=== PATIENT | male | born 1960 | race Caucasian/White ===

== ENCOUNTER 2023-03-01 09:45 | Day surgery (SDC) | payer OTHER, SELFPAY ==
[2023-03-01] VITALS (16 sets, daily range): BP systolic 102–139; BP diastolic 67–89; PULSE 51–62; RESP 15–20; TEMP 36.5; O2SAT 95–99; BMI 29.9
--- OUTSIDE RECORDS SUMMARY | 2023-03-01 09:49 | XMS_ITS | Continuity of Care Document ---
Author Name Unknown Organization [facility] Address [address] [place] [address] Phone Care Team Providers Care Provider Network Mgr Name Role Phone Adolfo Magana MD Unavailable Unavailable Allergies, Adverse Reactions, Alerts Substance Reaction Status Criticality No Known Allergies Active No Inform ation Medications Medication Instructions Dosage Effective Dates (start - stop) Status Comments ATENOLOL (unknown strength) Not Available - Active LISINOPRIL (unknown strength) Not Available - Active ATORVASTATIN CALCIUM (unknown strength) Not Available - Active Procedures Procedure Date Office/Outpatient Visit,Est, Mod 2022 Office/Outpatient Visit,Est, Low 2021 Postop Followup Visit Postop Followup Visit Lami, Facetectomy/Foraminotomy, Lumbar ( Stenosis) Lami, Facetectomy/Foraminotomy - Additio nal Level(s) - PA Lami, Facetectomy/Foraminotomy, Lumbar ( Stenosis) Lami, Facetectomy/Foraminotomy - Additio nal Level(s) Office/Outpatient Visit,New, Mod 2020 Advance Directives Directive Yes / No Effective Date File Name No Information Encounters Encounter Description Practice Location Reason(s) For Visit Diagnoses Date Provider Providers Copied on Encounter Office/Outpat ient Visit,Est, Mod [facility], [address], [facility], [place], [id number] , tel:[phone] [facility] Spinal stenosis, lumbar region with neurogenic claudication Apr-0 3 [place] [facility], [address], [place], [place], [id number], [place]. tel:[phone] Referring Provider: David Ackerman [address], [address]. tel:[phone] Office/Outpat ient Visit,Est, Low [facility], [address], [place], [place], [id number] , [place] tel: [phone] [facility] Spondylolisth esis, lumbar regionSpinal stenosis, lumbar region with neurogenic claudication Apr-2 2 [place], [address], [address], [place], [place], [id number], [place]. tel:[phone] Referring Provider: David Ackerman [address], [address]. tel:[phone] [facility], [address], [place], [place], [id number] , [place] tel: [phone] [facility] Encounter for other specified surgical aftercare 1 [place]. [facility], [address], [facility] [address], [place], [id number], [place]. tel:[phone] Referring Provider: Saravanan Nelson[address], [address]. tel:[phone] [facility], [address], [place], [place], [id number] , [place] tel:[phone] [facility] Encounter for other specified surgical aftercare 1 No Information Referring Provider: David Ackerman [address], [address]. tel:[phone] [facility], [address], [place], [place], [id number] , [place] tel: [phone] [facility] No Information 1 No Information Referring Provider: David Tyron, [address], [address]. tel:[phone] [facility], [address], [place], [place], [id number] , tel:[phone] [facility] No Information 1 [place], [facility] [address] [place] [address], [address], [id number], [place]. tel:[phone] Referring Provider: David Ackerman [address], [address]. tel:[phone] Office/Outpat ient Visit,New, [facility], [address], [place], [place], [id number] , [place] tel:[phone] [facility] Spinal stenosis, lumbar region with neurogenic claudicationS pondylolysis, site unspecified 1 [place]. [facility], [address] [place] [address], [address], [id number], [place]. tel:[phone] Referring Provider: David Ackerman [address], [address]. tel:[phone] Family History Family Member Type Diagnosis Age At Onset No Information Payers Payer name Insurance type Covered green party ID Kip leon(s) [employer] [id number] Social History Type Description Quantity Date Captured Comments Alcohol Use Details Unknown Caffeine Use Details Unknown Tobacco Use Status No Information Smoking Status No Information Sex Male Vital Signs Date / Time: Height Weight BMI Pulse Rate Blood Pressure Temperature Respiratory Rate Body Surface Area Head Circumference Head Circ. Percentile Wt./Foster. Percentile BMI percentile Pulse Ox Inhaled Ox 1:09 PM 72.00 in 103.419 kg (228.00 lbs) 30.9 2 kg/m eter (2) Chief Complaint And Reason For Visit No Information Reason For Referral Reason For Referral No Information Plan Of Treatment Date Type Action Status No Information History Of Present Illness Encounter Date Complaint History Of Prese nt Illness No Information Functional Status Date Functional Assessmen t No Information Instructions Date Instruction Additional Infor mation No Information Assessments Type Assessment Date No Information Patient Care Teams Name Effective Dates (start - stop) Status Members No Information
[2023-03-01] MEDS: BUPIVACAINE 0.25% 30 ML INJECTION (11:08)
[2023-03-01] MEDS: LIDOCAINE 1% MDV 20 ML INJECTION (11:08)
--- NOTE | 2023-03-01 12:00 | PM.GSPRC ---
Operative Note Date of procedure: 03/01/23 Pre-op diagnosis: Temporal arteritis Post-op diagnosis: Same Type of Procedure: Biopsy of right temporal artery Indications: Patient is a 62-year-old male with clinical symptoms concerning for possible temporal arteritis. His neurologist recommended a biopsy to rule out or confirm diagnosis. Risks and benefits of operative intervention were discussed at length with the patient. Risks included but was not limited to: Bleeding, infection, risk of damage to surrounding structures and possible need for additional procedures. All questions were addressed with patient agreeing to proceed. Procedure Description: After discussing the risks and benefits of the procedure, the patient signed informed consent.? The operative site was marked and the patient was brought to the operating room and placed on the operating table in supine position.? Care was taken to pad the patient's pressure points. The operative site was then prepped and draped in the usual sterile fashion.? A time-out was then performed. Attention was directed to the right side. The handheld Doppler was utilized to petty out the course of the temporal artery. Local anesthetic was utilized to numb up the area. A 15 blade was used to make an approximate 5 cm incision. Cautery was then used to divide the subcutaneous tissue and assure hemostasis. The artery was visualized within the temporoparietal fascia, which was entered with sharp dissection. A proximal portion of the artery was dissected out and ligated with 3 0 Vicryl and a small clip. The dissection was then carried distally for approximately 2 cm and ligated. The specimen was then carefully removed, trying to limit manipulation of the vessel itself, and passed off to the back table. Again hemostasis was assured and the incision closed with interrupted 3 0 Vicryl and running 4 Monocryl. Sterile dressings were then applied. ? The patient was then woken and transported to the recovery area in stable condition. ? The patient tolerated the procedure well. Findings: Right temporal artery Anesthesia: local Surgeon: Bee Silva MD Estimated blood loss (mL): 5 Additional Specimen Information: Right temporal artery Condition: stable Disposition: same day
[2023-03-01] MEDS: ACETAMINOPHEN 325 MG TABLET 650 MG PO (12:05)
== END 2023-03-01 12:36 | disposition home or self-care (01) ==
PROVIDERS: PCP Family Medicine; Visit Provider Surgery
PROC: (CPT 37609; principal; 2023-03-01 11:15)
DX: R51.9 Headache, unspecified (principal)
CPT/HCPCS: 37609; 88305; A9270; J0665

== ENCOUNTER 2024-04-01 12:41 | Outpatient (CLI) | payer MEDICARE, BC, SELFPAY ==
--- OUTSIDE RECORDS SUMMARY | 2024-04-01 12:45 | XMS_ITS | Clinical Summary ---
Author Organization [facility] Address [place], [place] [address] Care Team Providers Care Rn Training Name Role Phone Jimmie Barrera MD Primary Care Provider [phone] Allergies No known active allergies Medications Medication Sig Dispensed Refills Start Date End Date Status medication order composer Mouth Guard professional made from Dentist to replace CPAP. Patient does not use CPAP. SBliek 01/05/2023. 0 01/05/2023 Active albuterol HFA (PRO-AIR; VENTOLIN; PROVENTIL) 90 mcg/actuation inhalerIndications:A cute bronchospasm Inhale 2 Puffs by mouth every 4 hours if needed (cough). 1 Each 5 10/24/2023 Active lisinopriL (PRINIVIL; ZESTRIL) 10 mg tabletIndications:Hy pertension, unspecified type,Routine physical examination TAKE ONE TABLET BY MOUTH EVERY EVENING 90 Tablet 4 10/24/2023 Active atorvastatin (LIPITOR) 40 mg tabletIndications:Mi xed hyperlipidemia Take 1 Tablet (40 mg) by mouth once daily. 90 Tablet 4 10/24/2023 Active atenolol-chlorthalid one, 50-25 mg, (TENORETIC 50) 50-25 mg tabletIndications:Hy pertension, unspecified type TAKE ONE-HALF TABLET BY MOUTH DAILY 45 Tablet 4 10/24/2023 Active Active Problems Problem Noted Date Diagnosed Date COVID-19 virus detected 01/05/2023 Essential hypertension 12/03/2020 Obstructive sleep apnea 12/03/2020 GERD without esophagitis 12/03/2020 Spinal stenosis of lumbar re gion with neurogenic claudication 12/03/2020 Family history of prostate cancer 10/11/2016 Overview: Paternal uncle and many of his relatives with prostate cancer. Heriberto would prefer to continue yearly PSAs with this history as of 10/11/2016. [facility] HST Date 04/15/2015 ; AHI- 34 05/06/2015 Vitamin D deficiency 09/03/2013 Colon polyps 09/25/2008 Overview: Colonoscopy in 5 years 12/2013 Colonoscopy 09/2013 polyps repeat in 5 years Colonoscopy 10/2018 polyps, repeat in 5 years Colonoscopy 10/2023 TA, SSA, repeat in 5 years Mixed hyperlipidemia 08/05/2008 Acute bronchospasm 08/19/2007 Overview: Cold triggers. URI triggers. HYPERTENSION 08/16/2007 Encounters Date Type Department Care Team Description 03/25/2024 1:05 PM CDT Office Visit [facility] [address] [place] [address] Jimmie Barrera MD Musculoskeletal Problem (Right shoulder pain follow up ) 03/25/2024 Travel 03/21/2024 Telephone [facility] [address] [place] [address] Jimmie Barrera MD from Last 3 Months Immunizations Name Administration Dates Next Due Influenza, IIV3 (Age >=3 years) 07/23/2003 Td (Age >=7 Years) 04/15/2002 Tdap 10/07/2021,08/23/2011 Family History Medical History Relation Name Comments Cancer-prostate Father Heart Disease Father MA at 54 (smok er); he of a blood clot or MA at 88. Hypertension Father Heart Disease Maternal Grandfather MA x2 at 62 Arthritis Mother Cancer Mother Kidney Hypertension Mother Other Mother Honey combing o f lung med induced; at 71 from this Cancer-prostate Paternal Uncle Relation Name Status Comments Brother Alive Father (Age 88) Maternal Grandfather Mother Paternal Uncle Sister Alive Social History Tobacco Use Types Packs/Day Years Used Date Smoking Tobacco: Never Passive Smoke Exposure: Never Smokeless Tobacco: Never Tobacco Cessation:Counseling Given: Not Answered Alcohol Use Standard Drinks/Week Comments No 0 (1 standard drink = 0.6 oz pur e alcohol) PHQ-2 Answer Date Recorded PHQ-2 TOTAL SCORE 0 10/24/2023 Social Connections Answer Date Recorded Frequency of Communication with Friends and Fami ly 0 12/25/2023 Financial Resource Strain Answer Date R ecorded Difficulty of Paying Living Expenses 3 12/25/2023 Difficulty of Paying Living Expenses Not on file 12/25/2023 Food Insecurity Answer Date Recorded Worried About Running Out of Food in the Last Ye ar 1 12/25/2023 Transportation Needs Answer Date Record ed Lack of Transportation (Medical) 1 12/25/2023 Housing Stability Answer Date Recorded Unable to Pay for Housing in the Last Year 1 12/25/2023 Sex and Gender Information Value Date Recorded Sex Assigned at Not on file Gender Identity Not on file Sexual Orientation Not on file Obstetrics History Last Filed Vital Signs Vital Sign Reading Time Taken Comments Blood Pressure 101/62 03/25/2024 1:09 PM CDT Pulse 84 03/25/2024 1:09 PM CDT Temperature 36.4 ??C (97.6 ??F) 03/25/2024 1:09 PM CD T Respiratory Rate 16 11/14/2023 11:5 5 AM CDT Oxygen Saturation 97% 03/25/2024 1:09 PM CDT Inhaled Oxygen Concentration - - Weight 102.3 kg (225 lb 9.6 oz) 03/25/2024 1:09 PM CDT Height 183 cm (6' 0.05) 11/06/2023 1:57 PM CDT Body Mass Index 30.56 11/06/2023 1:57 PM CDT Plan of Treatment Health Maintenance Due Date Last Done Comments Zoster (shingles) series for age 50+ (1 of 2) 2008 COVID-19 vaccine series (1 - 2022-24 season) 2023 Pneumococcal series for age 65+ (1 of 1 - PCV) 2023 Influenza for age 65+ 04/20/2024 07/23/2003 Depression screening for age 12+ 10/24/2024 10/25/2023, 10/24/2023, 10/24/2023, Additional history exists Medicare Wellness for age 65+ 10/24/2024 10/24/2023 BMI (ht and wt on same day) for age 18+ 11/05/2024 11/06/2023, 10/24/2023, 08/21/2023, Additional history exists Lipids for age 45-75 10/23/2028 10/24/2023, 10/09/2022, 10/07/2021, Additional history exists Colonoscopy through age 75 11/13/202811/13, 11/14/2023, 11/14/2023, Additional history exists Tetanus booster 10/07/2031 10/07/2021, 11/2011, 04/15/2002 Hepatitis C screening for ag e 18-79 Completed 10/06/2020 Tdap Completed 10/07/2021, 08/23/2011 HIV for age 15-65 Completed 10/24/2023 Procedures Procedure Name Priority Date/Time Associated Diagnosis Comments COLONOSCOPY SCREENING Routine 11/14/2023 10:25 AM CDT History of colon polyps ANTI HIV 1/2 Routine 10/24/2023 9:09 AM [facility] Screening for HIV (human immunodeficiency virus) LIPID PANEL W REFLEX MEASURED LDL Routine 10/24/2023 9:09 AM [facility] Mixed hyperlipidemia ANTI HCV Routine 10/06/2020 9:55 AM [facility] Need for hepatitis C screening test from Last 3 Months or Most Recently Relevant to Health Maintenance Results * COLONOSCOPY (11/14/2023 10:32 AM CDT) 11/14/2023 10:3 2 AM CDT Narrative Transcriptions Fei Gorman MD - 11/14/2023 11:46 AM CDT Patient Name: Heriberto Ervin Procedure Date: 11/14/2023 Gender: Male Date of : 1960 Admit Type: Outpatient Procedure: Colonoscopy Proceduralist: Fei Gorman MD , Madelin Terrell, FITZ(Nurse), Sagrario Patiño (Nurse) Referring MD: Jimmie Barrera Indications/Pre-Op Diagnosis: High risk colon cancer surveillance:Personal history of colonic polyps, Last colonoscopy: October 2018 Medications: Fentanyl 100 micrograms IV, Midazolam 2 mgIV, The level of sedation administered wasmoderate Procedure Description: The patient had risks, benefits and alternatives explained to andgave informed consent. The patient had a stable cardiopulmonary status and judged an adequate candidate for conscious sedation. The endoscope [id number] was passed through the anus andadvanced to the cecum, identified by appendiceal orifice and ileocecal valve.The colonoscopy was performed without difficulty. The patient toleratedthe procedure well. The quality of the bowel preparation was good. The ileocecal valve, appendiceal orifice, and rectum were photographed. Complications: No immediate complications. Estimated Blood Loss & Specimen: Estimated blood loss: none. Specimen collected - Yes and sent to Laboratory Findings: The perianal and digital rectal examinations were normal. Two sessile polyps were found in the ascending colon. The polyps were2 to 3 mm in size. These polyps were removed with a cold biopsyforceps. Resection and retrieval were complete. A 3 mm polyp was found in the ascending colon. The polyp was semi-pedunculated. The polyp was removed with a cold snare. Resection and retrieval were complete. Scattered small-mouthed diverticula were found in the sigmoid colonand descending colon. The exam was otherwise without abnormality. Impressions/Post-Op Diagnosis: - Two 2 to 3 mm polyps in the ascending colon, removed with a cold biopsy forceps. Resected and retrieved. - One 3 mm polyp in the ascending colon, removed with a cold snare. Resected and retrieved. - Diverticulosis in the sigmoid colon and in the descending colon. - The examination was otherwise normal. Recommendation: - Patient has a contact number available for emergencies. The signsand symptoms of potential delayed complications were discussed with the patient. Return to normal activities tomorrow. Written discharge instructions were provided to the patient. - Resume previous diet. - Continue present medications. - Await pathology results. - Repeat colonoscopy is recommended. The colonoscopy date will be determined after pathology results from today's exam become available for review. Moderate Sedation: A time out was performed before the procedure. Moderate (conscious) sedation was administered by the endoscopy nurse and supervised bythe endoscopist. The following parameters were monitored: oxygensaturation, heart rate, blood pressure, EKG, CO2, respiratory rate, adequacy of pulmonary ventilation and reponse to care. Please refer to the patient's medical record flowsheets and nursing notes for moderate sedation details. Total physician intraservice time was 18 minutes. Fei Gorman MD 11/14/2023 11:46:28 AM This report has been signed electronically. Note Initiated On: 11/14/2023 10:32 AM Procedure Code(s): --- Professional --- 72956, Colonoscopy, flexible; with removalof tumor(s), polyp(s), or other lesion(s) bysnare technique 23382, 59, Colonoscopy, flexible; withbiopsy, single or multiple Diagnosis Code(s): --- Professional --- D12.2, Benign neoplasm of ascending colon Z86.010, Personal history of colonicpolyps K57.30, Diverticulosis of large intestine without perforation or abscess withoutbleeding CPT copyright 2021 [employer]. All rights reserved. The codes documented in this report are preliminary and upon ramp lead reviewmay be revised to meet current compliance requirements. Scope In: 11:25:46 AM Scope Withdrawal Time 0 hours 8 minutes 11 seconds Scope Out: 11:41:00 AM Fei Gorman MD PROCEDURE ORD * (ABNORMAL) LIPID PANEL W REFLEX MEASURED LDL (10/24/2023 9:09 AM [facility]) CHOLESTEROL,TOTAL 125 100 - 199 mg/dL 10/24/2023 6:16 PM [facility] Comment: Cholesterol, Total Reference Ranges Desirable <200 mg/dL Borderline 200-239 mg/dL High >=240 mg/dL TRIGLYCERIDES 171(H) <150 mg/dL 10/24/2023 6:16 PM [facility] HDL CHOLESTEROL 25(L) >40 mg/dL 6:16 PM [facility] NON-HDL CHOLESTEROL 100 <145 mg/dl 10/24/2023 6:16 PM [facility] CHOL/HDL RATIO 5.00(H) <4.50 10/24/2023 6:16 PM [facility] LDL CHOLESTEROL 66 <=130 mg/dL 10/24/2023 6:16 PM [facility] VLDL CHOLESTEROL 34(H) <=30 mg/dL 10/24/2023 6:16 PM [facility] PROVIDER ORDERED STATUS RANDOM 10/24/2023 6:16 PM [facility] Blood BLOOD SPECIMEN / Unknown Venipuncture / Unknown 10/24/2023 9:09 AM [facility] 10/24/2023 9:09 AM [facility] Jimmie Barrera MD CHEMISTRY Performing Organization Address City/[facility]/ZIP Co de Phone Number [facility] [address] [place] [address], [place] * ANTI HIV 1/2 [20731.0] (10/24/2023 9:09 AM [facility]) HIV-1/HIV-2 SCREEN Non-Reacti ve Non-Reacti ve 10/24/2023 5:52 PM [facility] Comment:HIV-1 p24 and HIV-1/ HIV-2 Ab Not Detected. Blood BLOOD SPECIMEN / Unknown Venipuncture / Unknown 10/24/2023 9:09 AM [facility] 10/24/2023 9:09 AM [facility] Jimmie Barrera MD SEND OUTS Performing Organization Address City/[facility]/ZIP Co de Phone Number [facility] [address] [place] [id number], [place] * ANTI HCV (10/06/2020 9:55 AM [facility]) HEPATITIS C ANTIBODY Non-React francisco javier Non-React francisco javier 10/06/2020 5:43 PM [facility] Comment:Antibodies to HCV no t detected; does not exclude the possibility of exposure to HCV. Blood BLOOD SPECIMEN / Unknown Venipuncture / Unknown 10/06/2020 9:55 AM [facility] 10/06/2020 9:55 AM [facility] Jimmie Barrera MD SEND OUTS [facility] [address] [place] [address], from Last 3 Months or Most Recently Relevant to Health Maintenance Additional Health Concerns Infection Onset Date Last Indicated COVID History Comment:Patient had positive COVID test on 11/22/2020. Patient met COVID clearance criteria on 12/02/2020. Patient no longer requires enhanced respiratory precautions. It is not recommended to collect additional COVID-19 tests until 90 days have passed since first positive test. Exception: patient develops new COVID-19 symptoms. 12/02/2020 12/02/2020 Advance Directives * Full Code (Latest Code Status on File) Date Activated Date Inactivated Comments 12/03/2020 8:02 PM 12/04/2020 6:46 PM Question Answer Comments Code Status Discussion: Discussed Care Teams Rn Training Relationship Specialty Start Date End Date Jimmie Barrera [place] [address] PCP - General 07/20/06
--- OUTSIDE RECORDS SUMMARY | 2024-04-01 12:45 | XMS_ITS | Data Portability ---
Author Organization [place] [facility], [facility] Address [address] [place] [address] Care Team Providers Care Lathe Sander Name Role Phone KELY WHITTAKER Sleep Medicine AZEEM GANDARA Sleep Medicine Assessment Encounter Date Assessment Date Assessment LastModified by Organization Details LastModified Time 04/03/2023 04/03/2023 Today I spent a considerable amount of time discussing the patients past medical and personal history, as well as performing a physical examination all of which is documented in it's entirety in the electronic health record. I reviewed the pathophysiology of the disorder, potential contributing and risk factors as well as treatment options to address their complaints. I discussed the pros and cons of advanced imaging with CT. Today no imaging was obtained. Heriberto's presentation is unusual in nature. The clinical presentation is atypical of primary headaches like migraine or cluster headaches ot trigeminal autonomic cephalagias due to absence of autonomic features. My primary differentials for Heriberto are Sleep apnea related headaches with concomitant medication overuse and possible sleep bruxism related headaches. I outlined the following treatment trial - 1. Maintain headache log to identify patterns, triggers and pertinent characteristics of the headache 2. Discontinue intake of Tylenol. I recommended treating medication overuse component with structured anti-inflammatory regimen for 2 weeks. Given recent use of steroids, I recommended Naproxen 500 mg b.i.d for 2 weeks. Today a prescription for Naproxen 500 mg BID, was provided to the patient. The risks and benefits associated with the prescribed medication was discussed with the patient today. Patient was asked to discontinue medication intake and return to clinic if significant side effects were noted from the medication. 3. I recommended a trial of using CPAP at night for the next 2 weeks. I believe the headaches are consistent with untreated apnea. Heriberto will bring his MAD for review in follow up. In case of intolerant to CPAP, titration of he MAD may be needed. 4. I recommended use of a consumer-grade wearable to track oxygen desaturation at night. 5. I wonder if a trial of Sumatriptan may be beneficial to consider in follow up if symptoms persist and/or migrainous features are identified with headaches. 6. I will consider fabrication of an intraoral appliance to address sleep bruxism if CPAP causes relief in symptoms. From a treatment perspective I recommended a self management treatment approach. Treatment begins with home self management designed to rest the muscles of mastication and reduce inflammation in the temporomandibular joints. This includes heat and ice compresses, eating a soft food or pain-free diet, bilateral chewing identifying and decreasing daytime muscle tension and modification of their sleep position. Today I taught simple jaw exercises designed to improve the jaw mechanics and movement, improve range of mouth opening and improve TM joint fluid circulation to facilitate healing. This includes simple jaw stretch. This was both demonstrated and given in written format. Concurrently I taught proper posture. Heriberto will return for a telehealth follow up in 2-3 weeks. I will consider in follow up need for physical therapy and fabrication of an intraoral appliance. I believe that by following these treatment recommendations there is a good prognosis for reduction of symptoms. History was obtained from patient and significant other. The patient has 5+ diagnoses they would like to address. This case is moderate complexity because of multiple diagnoses with chronic symptoms. Data reviewed included: laboratory testing. Discussion with pain team members after visit was necessary. Risk of complications include progressive disease/symptoms. Today time spent may have included a review of past records, history taking, review of diagnoses, contributing factors, treatment plan, diagnostic testing, prognosis, expectations, risks and complications of treatment/no treatment, discussions with other providers and completing documentation was 60 minutes. Not available 04/08/2023 17:34:54 04/17/2023 04/17/2023 This real time telemedicine visit with video was accomplished today at either patient preference or out of medical necessity due to community issues. The patient was verbally identified and written consent was obtained prior to our session. These sessions are not being recorded. Due to the nature of telemedicine the ability to do physical assessment was limited to what can be accomplished over a video and by patient instruction. Those limits are understood by the patient and myself. Impression is based on history, available information and physical findings accomplished with video assist. Chronic disease/problem list and medication list were reviewed and updated where indicated. We reviewed the patients past medical and personal history, family medical history, social history, past hospitalizations and surgical history and a review of systems was reviewed and addressed as documented today as part of this visit. Medication list was reviewed and adjusted as indicated. We discussed the diagnosis, contributing factors and treatment plan including risks, benefits and options of treatment. Level of patient risk was of moderate complexity due to the documented nature of presentation, the information assessment required and the nature of the development of an evaluation and treatment plan as documented. Medication requiring a refill were addressed. Risk and benefits of any new medications were discussed and all questions answered. Potential drug interactions were considered. Today I reviewed the diagnosis, contributing factors and treatment options. I reviewed and reinforced continued use of self care and home exercises. I've encouraged daily home care use which may consist of heat and ice compresses, oral habit reduction and relaxation techniques. Heriberto's improvement in symptoms with home self care, use of mandibular advancement device and Naproxen trial point toward a chronic tension type/sleep apnea headache presentation. I discussed the following recommendations for the upcoming weeks - 1. Complete the Naproxen as prescribed 2. Tiral different masks for CPAP to see if he is able to find one that his comfortable 3. Connect with sleep physician and discuss next steps. I may decide to get a sleep study with the MAD to check effectiveness. I believe the appliance may need further titration. In the event of Heriberto continuing to tolerate the MAD well, further titration may be needed before the sleep study. It may be reasonable to obtain Heriberto's current sleep study for our review and records. 4. Physical therapy for neck and jaw may be appropriate treatment if symptoms persist/progress. We discussed to follow up via telehealth in 3 weeks to review next steps. Greater than 50% of today's visit was spent counseling and coordinating care. Today's visit start time was 8 am and end time was 8.30 am. I've suggested a return for follow-up care in 1 month I advised to call for new, worsening or persistent symptoms. Patient is encouraged to visit and use our patient communicator portal as a means of reviewing visit summaries and recommendations generated as part of all patient visits, as a secure means of communication with our office and the doctor for any purpose any time and as a great means to get a copy of patient specific medical records. Not available 04/22/2023 07:50:59 05/08/2023 05/08/2023 This real time telemedicine visit with video was accomplished today at either patient preference or out of medical necessity due to community issues. The patient was verbally identified and written consent was obtained prior to our session. These sessions are not being recorded. Due to the nature of telemedicine the ability to do physical assessment was limited to what can be accomplished over a video and by patient instruction. Those limits are understood by the patient and myself. Impression is based on history, available information and physical findings accomplished with video assist. Chronic disease/problem list and medication list were reviewed and updated where indicated. We reviewed the patients past medical and personal history, family medical history, social history, past hospitalizations and surgical history and a review of systems was reviewed and addressed as documented today as part of this visit. Medication list was reviewed and adjusted as indicated. We discussed the diagnosis, contributing factors and treatment plan including risks, benefits and options of treatment. Heriberto has significantly improved with home self care, incorporating sleep hygeine measures, managing sleep apnea and possible sleep bruxism with the MAD and management of medication overuse component. I believe a round of diagnostic trigger point injection in the specific triggering spot may be beneficial to clarify his presentation further. Today we discussed the following next steps - 1. I recommended that he continue regular use of his MAD. I recommended titration of the device 5 turns on each side today and another 5 turns 2 weeks from now. Based on patient's self report of severe apnea, it is likely that the appliance may need further titration. Heriberto will monitor his sleep quality and headache presentation and document the titration. 2. I recommended continued home self care especially jaw neutral position during the day, use of hot/ice compress. 3. I believe a few sessions of physical therapy may be beneficial. Heriberto will work with his physical therapist to incorporate jaw stretches. 4. I believe it is reasonable to obtain an updated sleep evaluation to clarify the severity of apnea and determine appropriate treatment option. A referral was sent to [facility] per patient request. 5. Information on trigger point injection will be emailed to Heriberto. I recommended a follow up in 6 weeks in clinic after sleep study to determine next steps in treatment. Level of patient risk was of moderate complexity due to the documented nature of presentation, the information assessment required and the nature of the development of an evaluation and treatment plan as documented. Today I reviewed the diagnosis, contributing factors and treatment options. I reviewed and reinforced continued use of self care and home exercises. I've encouraged daily home care use which may consist of heat and ice compresses, oral habit reduction and relaxation techniques. Greater than 50% of today's visit was spent counseling and coordinating care. Today's visit start time was 8.30 am and end time was 9.05 am. I've suggested a return for follow-up care in 2 months. I advised to call for new, worsening or persistent symptoms. Patient is encouraged to visit and use our patient communicator portal as a means of reviewing visit summaries and recommendations generated as part of all patient visits, as a secure means of communication with our office and the doctor for any purpose any time and as a great means to get a copy of patient specific medical records. Not available 05/12/2023 23:30:51 2023 2023 Today I reviewed the diagnosis, contributing factors and treatment options. I reviewed and reinforced continued use of self care and home exercises. I encouraged daily home care use which may consist of heat and ice compresses, oral habit reduction and relaxation techniques. The Somnomed dorsal appliance was checked today. The appliance adjusted to symmetric position of 3 mm between metal hinges on both sides. The dental midline is aligned and bilateral posterior contacts is noted. A morning cook jelly was fabricated today and instructions on use discussed. Based on Heriberto's diagnosis of Severe apnea per the sleep study, further adjustment of the appliance is anticipated. However, I believe slow titration is warranted. I discussed rehabilitative treatment with self care and physical therapy to improve muscle tightness. Today trigger point injections of the right temporalis was performed as a diagnostic test. The patient tolerated the procedure well. He reports an improvement of pain from 8/10 to 3/10. I believe it may be reasonable to consider a series of 3 injections in bilateral masseter and temporalis muscles in follow up. I recommended Heriberto to continue using the MAD at this current titration. I believe the appliance is treating both sleep apnea and sleep bruxism. I also discussed a short course of muscle relaxants as a way to reduce muscle tension. Today a prescription for cyclobenzaprine 5 mg qhs, was provided to the patient. The risks and benefits associated with the prescribed medication was discussed with the patient today. Patient was asked to discontinue medication intake and return to clinic if significant side effects were noted from the medication. Heriberto will return for follow up in 3 weeks for repeat injections. History today was obtained from the patient. The patient has 5+ diagnoses which we are addressing. Their symptoms are improving. This case is moderate complexity because of multiple diagnoses with chronic symptoms. Data reviewed included outside records - sleep study. Discussion with treatment team members after visit was necessary. Risk of complications include monitoring for complications of treatment were discussed. Today time spent may have included a review of past records, history taking, review of diagnoses, contributing factors, treatment plan, diagnostic testing, prognosis, expectations, risks and complications of treatment/no treatment, discussions with other providers and completing documentation was 40 minutes. I suggested that (s)he return for follow-up care in 4-6 weeks. Not available 2023 14:23:10 06/26/2023 06/26/2023 Today I reviewed the diagnosis, contributing factors and treatment options. I reviewed and reinforced continued use of self care and home exercises. I encouraged daily home care use which may consist of heat and ice compresses, oral habit reduction and relaxation techniques. Today we mutually agreed to defer trigger point injections at this time due to the improvement from the last injection and the clarification that the symptoms were muscular. We discussed that rehabilitative treatment with physical therapy, massages, addressing sleep and stress management and pertinent. I discussed that it is reasonable to continue cyclobenzaprine as needed. I recommended continuing physical therapy exercises and posture checks during the day. I also believe sleep study with the MAD may provide information on efficiency of apnea management. I reviewed the sleep study documentation with Heriberto today. With the severity of ALLI, I believe that it may be reasonable to review the upcoming treatment sleep study to discuss further titration of the MAD. Heriberto would like to continue using the MAD. Today 5 turn titration of the device was completed on both sides. The appliance is at 4.5 mm distance on both sides. I recommended another 5 turn titration in 2 weeks. Heriberto will continue monitoring his sleep at this position. Heriberto's symptoms are consistent with chronic musculoskeletal tension presenting as headaches with overarching contributions from sleep apnea and neck pain. I believe continuing with rehabilitative treatment has significantly improved his symptoms. I answered questions on the prognosis and treatment plan moving forward. Heriberto will return for follow up after sleep study evaluation. History today was obtained from the patient. The patient has 5+ diagnoses which we are addressing. Their symptoms are significantly improved. This case is moderate complexity because of multiple diagnoses with chronic symptoms. Data reviewed included outside records- sleep study documentation. Risk of complications include monitoring for complications of treatment were discussed. Today time spent may have included a review of past records, history taking, review of diagnoses, contributing factors, treatment plan, diagnostic testing, prognosis, expectations, risks and complications of treatment/no treatment, discussions with other providers and completing documentation was 40 minutes. I suggested that (s)he return for follow-up care in 4-6 weeks. [email or web address] Not available 06/29/2023 08:59:02 Plan of Treatment Reminders Order Date Submit Date Provider Last Modified By Organization Details Last Modified Time Details Appointments None recorded. Lab None recorded. Referral physical therapist referral 2022 023 [email or web address] Ping Fonseca [facility], [address] [place] [address], [address], 3 17:35:54 physical therapist referral 2022 023 [email or web address] Fonseca PT, [address], [place], [address], 3 21:32:47 sleep medicine referral - Please call patient to schedule 2022 023 CAMILLE Gandara MD, [address] [place], [address], 3 23:40:28 physical therapist referral - Please call patient to schedule a PT appointmen t. 2022 023 [facility], [address] [place], [address], 16:28:20 Procedures None recorded. Surgeries None recorded. Imaging None recorded. Medication Orders naproxen 500 mg tablet 2022 023 [facility], [address] [place], [address], 09:35:36 cyclobenza tani 5 mg tablet 2022 023 GUTIERREZ [facility], [address] [place], [address], 17:02:20 Patient TargetsNo targets recorded. Patient Instructions Encounter Date Encounter Id Patient Instructions Last Modified By Organization Details Last Modified Time 04/03/2023 [id number] Self Care for TMD Not availab le 04/08/2023 17:35:54 oral appliance preparation* Not available 04/08/2023 17:35:54 Contributing factors identified at today's appointment include: postural factors, daytime clenching, sleep bruxism. Not available 04/08/2023 17:34:00 Reason for Referral Physical Therapist Referral for Myofascial pain Referring Physician: Angelika Mclean Pain Management, Encounter Date: 04/03/2023 Sleep Medicine Referral for Obstructive sleep apnea of adult Patient has a previous diagnosis of Severe ALLI-reevaluation. Currently being treated for headaches. Please call patient to schedule Referring Physician: Florinda Ivan Management, Encounter Date: 05/08/2023 Physical Therapist Referral for Myofascial pain Referring Physician: Florinda Ivan, Encounter Date: 05/08/2023 Physical Therapist Referral for Myofascial pain Evaluate and treat myofasical pain of masticatory and cervical muscles Please call patient to schedule a PT appointment. Referring Physician: Florinda Ivan, Encounter Date: 2023 Physical Therapist Referral for Myofascial pain Evaluate and treat myofasical pain of masticatory and cervical muscles Please call patient to schedule Referring Physician: Angelika Mclean, Pain Management, Encounter Date: 06/06/2023 Results Created Date Observation Date Name Description Value Unit Range Abnormal Flag LastModifiedBy Organization Detail LastModifiedTime 04/04/2004/04/2023 imagi ng/di agnos tic resul t No observ ation record ed. [email or web address] Not Available 04/24/2023 12:52:24 Result Notes None recorded. Problems Name Status Onset Date Resolution Date Notes Provider Name and Address Organization Details Recorded Time Cluster headache Active 04/03/20 23 ANGELIKA MCLEAN BDS,MS [address], [place], [address], [facility] 04/03/2023 15:59:39 Myofascial pain Active 04/08/20 23 ANGELIKA MCLEAN BDS,MS [address], [place], [address], [facility] 04/08/2023 17:30:05 Neck pain Active 04/08/20 23 ANGELIKA MCLEAN BDS,MS [address], [place], [address], [facility] 04/08/2023 17:31:05 Medication overuse headache Active 04/08/20 23 ANGELIKA MCLEAN BDS,MS [address], [place], [address], [facility] 04/08/2023 17:31:34 Obstructive sleep apnea of adult Active 04/08/20 23 sleep study 04/19/20 15-AHI-3 4, low ox-80% Kenisha faith [facility] 2023 14:07:24 Sleep related bruxism Active 04/08/20 23 ANGELIKA MCLEAN BDS,MS [address], [place], [address], [facility] 04/08/2023 17:34:50 Chronic tension-type headache Active 05/12/20 ANGELIKA HERNANDEZUN RICKIEEloisa,MS [address], [place], [address], [facility] 05/12/2023 23:32:49 Problem Notes None recorded. Procedures Surgical History Date Name Laterality Status Provider Name and Address Organization Details Recorded Time 3 Trigger point injection completed ANGELIKA MCLEAN BDS,MS [address], [place], [address], [facility] 2023 10:54:02 1 Back [facility] 04/03/2023 14:18:22 Imaging Results Imaging Date Name Status [facility]Modified by [facility] Details LastModified Time 04/04/2023 [facility] Information not available 04/24/2023 12:52:24 Procedure Notes None recorded. Medical Equipment None Reported. Allergies No known drug allergies Medications Name Sig Start Date Stop Date Status Note LastModified by Organization Details LastModified Time atorvastati n 40 mg tablet TAKE ONE TABLET BY MOUTH ONCE DAILY active Not Available Not Available No t Available atorvastati n 20 mg tablet TAKE 1 TABLET (20 MG) BY MOUTH ONCE DAILY. 04/03 completed Not Available Not Available Not Available atenolol 50 mg-chlortha lidone 25 mg tablet TAKE ONE-HALF TABLET BY MOUTH DAILY 06/05 completed Not Available Not Available Not Available lisinopril 10 mg tablet TAKE ONE TABLET BY MOUTH EVERY EVENING active Not Available Not Available No t Available methylpredn isolone 4 mg tablets in a dose pack TAKE BY MOUTH INSTRUCTE D PER PACKAGING . 04/03 completed Not Available Not Available Not Available atenolol 50 mg tablet 50 mg every day by oral route. 2004 active Not Available Not Available Not Avai lable naproxen 500 mg tablet TAKE ONE TABLET BY MOUTH TWICE A DAY WITH MEALS FOR 15 DAYS 06/05 completed Not Available Not Available Not Available cyclobenzap rine 5 mg tablet TAKE 1 TABLET BY MOUTH EVERY DAY AT BEDTIME FOR 30 DAYS. active Not Available Not Available No t Available atorvastati n 04/03 completed Not Available Not Available Not Available lisinopril 04/03 completed Not Available Not Available Not Available Vitals Date Recorded Heart rate Systolic blood pressure Diastolic blood pressure Provider Name and Address Organization Details Last Updated DateTime 2023 69 /min 120 mm[Hg] 68 mm[Hg] Kenisha REBOLLEDO [facility] 2023 09:35:07 Date Recorded Heart rate Systolic blood pressure Diastolic blood pressure Provider Name and Address Organization Details Last Updated DateTime 06/26/2023 70 /min 121 mm[Hg] 70 mm[Hg] Kenisha Gonzalez [facility] 06/26/2023 09:31:55 Date Recorded Heart rate Systolic blood pressure Diastolic blood pressure Provider Name and Address Organization Details Last Updated DateTime 04/03/2023 72 /min 105 mm[Hg] 63 mm[Hg] Kenisha Gonzalez [facility] 04/03/2023 14:36:13 Social History Question Answer Notes LastModified by Organizat ion Details LastModified Time Tobacco Smoking Status Never Smoker [facility] 04/03/2023 14:18:15 What Is Your Level Of Alcohol Consumption? None Information not available 04/03/2023 What Is Your Level Of Caffeine Consumption? Occasional Information not available 04/03/2023 Are You Currently Employed? No Retired Information not available 06/26/2023 What Type Of Diet Are You Following? REGULAR Information not available 04/03/2023 Do You Reside In Or Have You Traveled To An Area Where Ebola Virus Transmission Is Active? No Information not available 04/03/2023 What Is The Highest Grade Or Level Of School You Have Completed Or The Highest Degree You Have Received? 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 NOT KNOWN Information not available 04/03/2023 How Many Children Do You Have? 4 Information not available 04/03/2023 What Is Your Relationship Status? Information not available 04/03/2023 Do You Feel Stressed (tense, Restless, Nervous, Or Anxious, Or Unable To Sleep At Night)? [id number] Information not available 04/03/2023 Do You Use Any Illicit Or Recreational Drugs? No Information not available 04/03/2023 Sex: Unknown Functional Status Question Answer Note LastModified by Organization D etails LastModified Time What is your exercise level? Moderate Information not available 04/03/2023 Mental Status None recorded. Family History Relationship Description Onset Age of this Age Resolved Age Notes Father No current problems or disability Mother No current problems or disability Medical History Condition Response Headaches Y Obstructive Sleep Apnea Y Hypertension Y High Cholesterol Y Past Encounters Encounter ID Performer Location Encounter Start Date Encounter Closed Date Diagnosis/Indication Diagnosis SNOMED-CT Code [id number] ANGELIKASUKHWINDER MCLEAN BDS,MS [place] [address] [place] [address] 04/03/2023 14:15:20 04/03/2023 16:16:58 Myofascial pain 332541870 Neck pain 71669765 Medication overuse headache 074658278 Obstructiv e sleep apnea of adult 7237358424700 Sleep related bruxism 27 8484594 [id number] ANGELIKA CHELSEA MCLEAN,MS [place] [address] [place] [address] 04/17/2023 08:58:12 04/17/2023 09:36:45 Obstructive sleep apnea of adult [id number] Cluster headache 6825932 09 Sleep related bruxism 27 2971029 Myofascial pain 92827307 9 Medication overuse headache 318036607 Neck pain 23184946 [id number] ANGELIKA RICKIE MCLEANEloisa,MS [place] [address] [place] [address] 05/08/2023 09:03:45 05/08/2023 10:15:40 Obstructive sleep apnea of adult 5140183115171 Cluster headache 5714789 09 Sleep related bruxism 27 9408618 Myofascial pain 18239318 9 Neck pain 12885770 Chronic te nsion-type headache 219399334 [id number] ANGELIKA MCLEAN BDS,[place] [address] [place] [id number] 2023 09:27:36 2023 10:34:22 Obstructive sleep apnea of adult 3519936508830 Neck pain 90000397 Myofascial pain 38451623 9 Sleep related bruxism 27 0820382 Chronic te nsion-type headache 942856306 [id number] ANGELIKA MCLEAN BDS,MS [place] [address] [place] [id number] 06/26/2023 09:23:27 06/26/2023 10:34:58 Obstructive sleep apnea of adult 1708078210881 Chronic te nsion-type headache 105162829 Sleep related bruxism 27 2743071 Myofascial pain 81867917 9 Neck pain 67188127 Health Concerns Section Related Observation LastModified by Organization Detai ls LastModified Time None Recorded Concern Status LastModified by Organization Details LastModified Time None Recorded Advance Directives Directive None Recorded Payers Encounter Date Sequence Insurance Name Policy Number Policy Bennett Covered Member ID Bennett Member ID Guarantor Name 04/03/2023 1 [facility] [id number] Heriberto A Moorhouse [id number] Heriberto A Moorhouse 04/17/2023 1 [facility] [id number] Heriberto A Moorhouse [id number] Heriberto A Moorhouse 05/08/2023 1 [employer] [id number] Heriberto A Moorhouse [id number] Heriberto A Moorhouse 2023 1 [facility] [id number] Heriberto A Moorhouse [id number] Heriberto A Moorhouse 06/26/2023 1 [place] [employer] [facility] Heriberto A Moorhouse [id number] Heriberto A Moorhouse Notes Date Note Type Note Provider Name and Address Organization Details Recorded Time 04/03/2023 text/html HPI Notes: gener al HPI for jaw, face, TMD pain Reported by patient. Location: right; masseteric; mandibular; temporal; has a tight neck on right side Quality: shooting; sharp; stabbing Severity: moderate; pain level 3-7/10; radiating to the head Duration constant; not improving or worsening Symptom triggers: clenching; bruxism; stress; poor sleep Aggravating Factors: grinding teeth Alleviating Factors: acetaminophen; heat; ice; chiropractic Associated Symptoms: headaches Prior Tests: MRI Prior Treatment: NSAID trial Prior opinion primary care provider Symptoms status unchanged Patient presents today for evaluation of a possible temporomandibular disorder. These symptoms are chronic and began with no clear triggering events. Previous consultation include evaluation with his/her primary care provider. Symptoms are right sided only and aggravated by clenching and grinding of their teeth. The patient is aware of teeth clenching and grinding. Heriberto presents with his as referred by his dentist Dr Price( who made his FLAQUITA) for right sided jaw pain, he has wearing a FLAQUITA a chely for the last 2 years however he stopped wearing it for the last 6 months due to some jaw pain the headaches came on a few months later, he has all his pain on right side, he has a tight right side of neck and his headaches come on the right side and feel like behind his eye and in his yazidism, he had a biopsy from a neurologist Dr. Ahmadi., that came back inconclusive, he also had an MRI done By Dr. Cagle who is his primary. 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 However about 2 years ago his dentist fabricated an MAD device which has been his primary treatment for ALLI. The appliance has not been titrated since fabrication. Heriberto reports using it 100% of the nights. He reports onset of jaw pain and jaw feeling out of alignment 6 months ago and attributed it to the use of MAD. He discontinued use of the appliance and his jaw symptoms resolved in a few days. However he reports that his headaches have remained unchanged. Heriberto wonders if his headaches had been present even before being aware of it 6 months ago. Heriberto reports daily constant dull ache in right back of neck, refers to yazidism, back of neck, of intensity 3/10. He identifies that his headaches wakes him up from sleep and is also more noticeable on awakening. He denies autonomic symptoms. He denies auras, denies neurological symptoms with the headaches like numbness, tingling or migrainous features. He reports taking tylenol 500 mg 2-3 times and occasionally Advil to help with pain. Aggravating factors are laying down, cough and sneezing which increasing intensity 7-9/10. He denies sharp quality to the pain or triggering from touch. He denies dental or ear concerns. He is aware of teeth clenching and grinding his teeth previously untreated. His apnea is currently untreated. He reports chiropractic adjustments to his neck periodically help manage symptoms. The MAD is not available for viewing today. H reports fatigue, excessive daytime sleepiness, He denies swallowing issues or ear pain pressure, tinnitus, jaw symptoms like limitation in range of motion, bite changes, jaw locking or catching episodes. He was evaluated by his primary doctor with unremarkable labs for inflammatory markers. Right temporal artery biopsy was also inconclusive and rule as not remarkable. He recently was on Medrol dosepak 2 times over the last 2 months. Heriberto has a diagnosis of cluster headache on 2010 which was treated with possible steroids. He has not had cluster headaches since. Heriberto works in [employer]. ANGELIKA MCLEAN, BDEloisa,MS [address] [facility] [address], [place], [address], [facility] 04/08/2023 17:36:03 04/17/2023 text/html HPI Notes: gener al HPI for jaw, face, TMD pain Reported by patient. Location: right; masseteric; mandibular; temporal; has a tight neck on right side Quality: shooting; sharp; stabbing Severity: moderate; pain level 3-7/10; radiating to the head Duration constant; not improving or worsening Symptom triggers: clenching; bruxism; stress; poor sleep Aggravating Factors: grinding teeth Alleviating Factors: acetaminophen; heat; ice; chiropractic Associated Symptoms: headaches Prior Tests: MRI Prior Treatment: NSAID trial Prior opinion primary care provider Symptoms status unchanged As part of today's telehealth visit Verbal Consent to treat was obtained from the patient. The patient has been informed of what a Telehealth visit is: Telehealth is the practice of using telecommunication technology to evaluate, diagnose and care for patients at a distance. This telehealth visit is medically necessary due to patient choice, distance or to prevent the community spread of Covid-19. The patient was at home, while the provider was in the clinic. The patient has been informed that there is a potential for data loss due to technical failure. Security Measures: Multiple layers of technical and administrative security controls have been implemented to safeguard patient information. Unique, password protected visit IDs will be provided for each session. Communications are established using 256-bit TLS encryption and all shared content is encrypted with AES-256 encryption. Patient presents today for follow-up. They report jaw symptoms which are improved since the previous visit. Symptoms and pertinent information along with prior data was reviewed, updated and documented in the patient history of present illness. Patient rates the pain intensity as 0 on a scale of 0 to 10. Patient is engaged in active treatment at this time. Heriberto got the Naproxen about a week ago, and he feels like the tightness is better, he can tell when the Naproxen wears off, he is trying his FLAQUITA again and he has been getting better sleep, he needs a new mask for his CPAP and we discussed going and buying one at [facility] vs waiting till june to see doctor. JOSE CARLOS Louis reports that his symptoms have been improving - he reports 50% improvement in symptoms. He attributes it to using the Naproxen since last sunday he has a week of Naproxen left, trial of the MAD and use of heat compress for his jaw. He has not taken NSAIDs after completing Naproxen trial. He is still aware of the headaches on most days but is able to recognise pain-free periods. CPAP - Heriberto reports that he has tried the CPAP and finds that the mask is not fitting right. MAD - he has used the MAD every night. He did 2 turns down-titration on both sides and did not notice any jaw symptoms. Sleep - improving, he wonders if his energy levels may be improved. He is waking up with less intense headaches. Headache journal - has been helpful - he does not identify triggers with weather changes, food triggers, no nausea, vomiting, light or sound sensitivity with the headaches. His [place] today is 9 rendered virtually. ANGELIKA MCLEAN, CHEL[place],MS [address], [place], [address], [facility] 04/22/2023 07:52:27 05/08/2023 text/html HPI Notes: As pa rt of today's telehealth visit Verbal Consent to treat was obtained from the patient. The patient has been informed of what a Telehealth visit is: Telehealth is the practice of using telecommunication technology to evaluate, diagnose and care for patients at a distance. This telehealth visit is medically necessary due to patient choice, distance or to prevent the community spread of Covid-19. The patient was at home, while the provider was in the clinic. The patient has been informed that there is a potential for data loss due to technical failure. Security Measures: Multiple layers of technical and administrative security controls have been implemented to safeguard patient information. Unique, password protected visit IDs will be provided for each session. Communications are established using 256-bit TLS encryption and all shared content is encrypted with [employer]-256 encryption. Patient presents today for follow-up. They report jaw symptoms which are improved since the previous visit. Symptoms and pertinent information along with prior data was reviewed, updated and documented in the patient history of present illness. Patient rates the pain intensity as 0 on a scale of 0 to 10. Patient is engaged in active treatment at this time. Heriberto reports significant improvement in headaches - 75% improvement in the last few weeks. He reports that he completed Naproxen course 10 days ago and he has had 4 headache days, compared to daily headaches prior. He takes Naproxen 220 mg for the headaches. He attributes improvement to use of MAD to manage his apnea. Heriberto reports that he has been using the MAD every night in the last 3 weeks. He has not been using CPAP since the MAD has been comfortable. The appliance has not been adjusted since last visit. Heriberto denies jaw pain, tooth pain, bite changes since using MAD. Heriberto identifies a specific spot in the right temporalis muscle that when irritated can trigger his headaches. He denies specific patterns to the headache. He is aware of some teeth clenching during the day. His morning headaches are significantly improved. He denies nausea, vomiting, light or sound sensitivity with the headaches. Heriberto would like to start physical therapy if it will be helpful. He is retiring at the end of May and will switch to Medicare after that. ANGELIKA MCLEAN, BDS,MS [address], [place], [address], [place] [facility] 05/12/2023 23:33:48 2023 text/html HPI Notes: Sleep Apnea Reported by patient. Severity/status: severity of apnea: AHI=34; date of last axuzwxoksxchwkc94/31/2 015; lowest oxygen saturation 80-91% 80 Interference: morning tiredness/fatigue Associated Symptoms: morning headache Prior opinion pulmonology Prior Tests: polysomnography Patient presents today for follow-up. (S)he is effectively using the mandibular advancement oral appliance. They note improved symptoms which along with prior data was reviewed, updated and documented in the patient history of present illness. Subjectively they believe the appliance to be effective in improving sleep quality. (S)he recognizes improved daytime tiredness and improvement in restorative sleep. (S)he has mild side effects including jaw pain. (S)he is not using the morning bite cook jelly as recommended. Adjustments to the oral appliance are not felt necessary. Heriberto's primary concern is temporal headaches. He has diagnosis of severe ALLI and had an MAD fabricated in the external clinic a few years ago. Per his sleep study from 2014 he has a diagnosis of Severe ALLI with AHI 34/hr, RDI 36/hr and MIKHAIL 35/hr and lowest O2 desaturation of 78%. Heriberto reports that he has since last visit made 10 turn titrations to the device and believes that his jaw pain is more noticeable and jaw is tight. He turned it back to 5 turns and feels like this is more comfortable. Heriberto reports a total of 80% improvement in his symptoms with his headaches with self care, jaw exercises and use of the MAD and treating his apnea. He has an upcoming appointment with Dr. Gandara in july. Heriberto reports experiencing headaches in the right yazidism described as a dull achy pain 2x/week with no associated nausea, vomiting, light and sound sensitivity. He takes OTC Aleve as needed. He reports being aware of daytime oral habits like clenching his teeth and posturing his jaw anteriorly. He reports work stress also attributes to his jaw tightness. Neck pain - Heriberto is aware of neck muscle tightness and is working with a chiropractor. He is aware of tightness in his muscles during the day. PT - He has not scheduled one yet. An order was sent 2 weeks and Heriberto is looking forward to starting treatment. Heriberto retires in 4 days and reports that he is looking forward to being able to relax. ANGELIKA MLCEAN BDS,MS [address], [place], [address], [place] [facility] 2023 16:26:09 06/26/2023 text/html HPI Notes: Sleep Apnea Reported by patient. Severity/status: severity of apnea: AHI=34; date of last aqwgapkssooxbgn48/31/2 015; lowest oxygen saturation 80-91% 80 Interference: morning tiredness/fatigue Associated Symptoms: morning headache Prior opinion pulmonology Prior Tests: polysomnography Patient presents today for follow-up. (S)he is effectively using the mandibular advancement oral appliance. They note improved symptoms which along with prior data was reviewed, updated and documented in the patient history of present illness. Subjectively they believe the appliance to be effective in improving sleep quality. (S)he recognizes improved daytime tiredness and improvement in restorative sleep. (S)he has mild side effects including jaw pain. (S)he is not using the morning bite cook jelly as recommended. Adjustments to the oral appliance are not felt necessary. Heriberto is present for follow up after the diagnostic trigger point injection 3 weeks ago. He also presents for follow up with his sleep appliance. He feels the adjustment moving it forward is fine with no jaw pain and issues, he has not taken any aleve in the last week and a half. He felt like the injection lasted about 2 days and the tightness was better for about a week. He feels like things are better, he started PT yesterday, and her had a sleep appointment and they will do a home sleep study with FLAQUITA soon. Headaches - He reports that the headaches are improving. He reports that tightness has improved. He has not had need for rescue medications for the last 2 weeks. PT - started yesterday. improving with jaw /Neck tightness. Gave some exercises for isometric exercises. He is aware of tightness in neck muscles during the day and is working on addressing posture and relaxing his muscles. He reports that penitentiary has helped with his stress and keeping his blood pressure down. Had an appointment with Dr. Gandara last week. He will be scheduled for a home sleep study with the device on July 05. Heriberto reports that he would like to continue trying the MAD and did not like the CPAP previously. Per his sleep study from 2014 he has a diagnosis of Severe ALLI with AHI 34/hr, RDI 36/hr and MIKHAIL 35/hr and lowest O2 desaturation of 78%. Heriberto reports a total of 80% improvement in his symptoms with his headaches with self care, jaw exercises and use of the MAD and treating his apnea. ANGELIKA MCLEAN BDS,MS [address] [facility], [place], [address], [facility] 06/29/2023 08:59:58
--- OUTSIDE RECORDS SUMMARY | 2024-04-01 12:45 | XMS_ITS | Continuity of Care Document ---
Author Organization [facility] Address [address] [place] [address] Phone Care Team Providers Care Gynecologist Name Role Phone Adolfo Magana MD Unavailable [...] on Encounter Office/Outpat ient Visit,Est, Mod [facility], [address], [facility], [place], [id number] , [place] tel:[phone] [facility] Spinal stenosis, lumbar region with neurogenic claudication Nov-0 3 [place]. [facility] [place], [address], [place], [id number], [place]. tel:[phone] Referring Provider: David Keith, [address], [place], [address]. tel:[phone] Office/Outpat ient Visit,Est, Low [facility], [address], [place], [place], [id number] , [place] tel: [phone] [facility] Spondylolisth esis, lumbar regionSpinal stenosis, lumbar region with neurogenic claudication Nov-2 2 [place]. [facility] [place], [address], [place], [place], [id number], [place]. tel:[phone] Referring Provider: David Keith, [employer] [address], [place], [address]. tel:[phone] [facility], [address], [place], [place], [id number] , [place] tel: [phone] [facility] Encounter for other specified surgical aftercare 1 [place]. [facility] [place], [address], [facility] [address], [place], [id number], [place]. tel:[phone] Referring Provider: Helen Steinberg [address], [place], [address]. tel:[phone] [facility], [address], [place], [place], [id number] , [place] tel: [phone] [facility] Encounter for other specified surgical aftercare No Information Referring Provider: Helen Steinberg [address], [place], [address]. tel:[phone] [facility], [address], [place], [place], [id number] , [place] tel: [phone] [facility] No Information Apr-1 9-202 1 No Information Referring Provider: David Keith, [employer] [facility], [place], [address]. tel:[phone] [facility], [address], [place], [place], [id number] , tel:[phone] [facility] No Information 1 [place]. [facility] [place], [address], [address], [place], [id number], . tel:[phone] Referring Provider: David Keith, Xormis [facility], [place], [address]. tel:[phone] Office/Outpat ient Visit,[facility], [facility], [address], [place], [place], [id number] , tel:[phone] [facility] Spinal stenosis, lumbar region with neurogenic claudicationS pondylolysis, site unspecified 1 [place]. [facility] [place], [address], [address], [place], [id number], [place]. tel:[phone] Referring Provider: David Keith Xormis [address] [facility], [place], [address]. tel:[phone] Family History Family Member Type Diagnosis Age At Onset No Information Payers Payer name Insurance type Covered republican ID Authorbassem leon(s) [id number] Social History Type Description Quantity Date Captured [...] For Referral Reason For Referral No Information History Of Present Illness Encounter Date Complaint History Of Prese nt Illness No Information Functional Status Date Functional Assessmen t No Information Instructions Date Instruction Additional Infor mation No Information Assessments Type Assessment Date No Information Patient Care Teams Name Effective Dates (start - stop) Status Members No Information
--- NOTE | 2024-04-01 13:00 | CRLHL7_ITS ---
For Patients: As a result of the 21st Century Cures Act, medical imaging exams and procedure reports are released immediately into your electronic medical record. You may view this report before your referring provider. If you have questions, please contact your health care provider. CLINICAL INDICATION: Right shoulder pain. COMPARISON IMAGING STUDIES: None available at time of interpretation. TECHNICAL: Non-contrast MRI of the right shoulder. Axial, sagittal oblique and coronal oblique T1, PD, PD FS and T2-weighted images. 1.5 Noelle MR scanner. FINDINGS: GLENOHUMERAL JOINT: Effusion: Small amount of joint fluid. Humeral Head Articular Cartilage: Maintained. Glenoid Articular Cartilage: Maintained. Alignment: Maintained. Capsule: No generalized capsular edema. OSSEOUS STRUCTURES: No fracture or marrow replacement process. CORACOACROMIAL ARCH: Acromial Morphology: Type 2 acromial morphology. Slight lateral downward sloping of the acromion. No os acromiale. No significant subacromial spur. Lateral acromial thickness is 9 mm. Acromiohumeral Interval: At its narrowest, the interval measures 7 mm. There is prominence of the coracoacromial ligament as noted on sagittal oblique T2 image number 12 series 8. Coracohumeral Interval: At its narrowest, the coracohumeral interval measures 6 mm. Coracoid index is 20 mm. ACROMIOCLAVICULAR JOINT REGION: Advanced AC joint degenerative arthrosis. Coracoclavicular ligament intact. BURSAE: Small amount of subacromial-subdeltoid bursal edema is present. ROTATOR CUFF TENDONS AND MUSCLES AND DELTOID: Supraspinatus and Infraspinatus: The supraspinatus tendon is abnormal over its entire anterior/posterior and medial/lateral extent spanning an approximately 2.4 centimeter anterior/posterior by up to 4.5 centimeter medial/lateral extent. This reflects a combination of tendinosis, full-thickness tendon tearing and partial-thickness tendon tearing. A full-thickness tendon defect is noted on sagittal oblique T2 image number 9 of series 8 involving the tendon centered approximately 1.5 cm medial to the footplate over an approximately 0.7 centimeter anterior/posterior by 0.5 centimeter medial/lateral extent. Extensive partial-thickness tendon tearing is present adjacent to that full-thickness tendon defect. There is mild supraspinatus muscle atrophy. Mild distal infraspinatus tendinosis. No high-grade infraspinatus tendon tear or infraspinatus muscle atrophy. Teres Minor: No tendinosis, tendon tearing, muscle atrophy or muscle edema. Subscapularis: Mild distal subscapularis tendinosis. No high-grade subscapularis tendon tear or muscle atrophy. Deltoid: No muscle atrophy or edema. BICEPS TENDON, LONG HEAD: Tendinosis of the proximal long head of the biceps tendon. No dislocation of tendon from bicipital groove. GLENOID LABRUM: Degenerative labral fraying. OTHER FINDINGS: There is no abnormality within the suprascapular or spinoglenoid notches nor within the quadrilateral space. No axillary adenopathy or mass. IMPRESSION: 1. Diffusely abnormal supraspinatus tendon related to a combination of tendinosis, focal full-thickness tendon tearing and partial thickness tendon tearing. Mild supraspinatus muscle atrophy. 2. Mild infraspinatus tendinosis. 3. Mild subscapularis tendinosis. 4. Tendinosis of the proximal long head of the biceps tendon. 5. Advanced AC joint degenerative arthrosis. 6. Degenerative labral fraying. Dictated by Hardik Shannon MD @ 04/01/2024 2:34:01 PM (Electronically Signed)
== END 2024-04-01 12:42 | disposition home or self-care (01) ==
LOC: MRI 12:43
PROVIDERS: PCP Family Medicine; Visit Provider Family Medicine
DX: M25.511 Pain in right shoulder (principal); M75.81 Other shoulder lesions, right shoulder; M19.011 Primary osteoarthritis, right shoulder; M77.8 Other enthesopathies, not elsewhere classified
CPT/HCPCS: 73221

== ENCOUNTER 2024-06-11 13:15 | Emergency (ER) | payer MEDICARE, BC, SELFPAY ==
[2024-06-11 13:22] VITALS: BP 101/63; PULSE 72; RESP 16; TEMP 36.2; O2SAT 96; BMI 29.0
--- NOTE | 2024-06-11 13:40 | ED_ITS ---
HPI - General Adult General Chief complaint: Extremity Pain/Injury, Lower Stated complaint: R Foot swollen/non weight bearing, no trauma Time Seen by Provider: 06/11/24 13:19 Source: patient Mode of arrival: ambulatory Limitations: no limitations History of Present Illness HPI narrative: Patient is a 64-year-old male presenting today with right foot pain. Pain started on Sunday at the base of the big toe and progressed the remainder of the foot in the last day or 2. He denies any systemic symptoms like fevers, chills, nausea or vomiting. He states that he has had this occur in the past and he has exacerbations of foot pain frequently, every 2-4 weeks. However the pain only lasts a day or 2 and then goes away. This is the longest it has lasted, going on day 4. The pain is usually located at the base of the big toe, occurs both on the right and the left foot, never at the same time. He denies any trauma to the foot. Past medical history significant for hypertension, hyperlipidemia, osteoarthritis. Related Data Home Medications ?Medication ?Instructions ?Recorded ?Confirmed albuterol sulfate 90 mcg/actuation inhalation 10/05/23 04/09/24 aerosol inhaler atenolol 50 mg-chlorthalidone 25 tab PO 10/05/23 04/09/24 mg tablet atorvastatin 40 mg tablet 40 mg PO DAILY 10/05/23 06/11/24 lisinopril 10 mg tablet 10 mg PO DAILY 10/05/23 06/11/24 Previous Rx's ?Medication ?Instructions ?Recorded prednisone 20 mg tablet 40 mg (2 x 20 mg) PO DAILY #20 tabs 06/11/24 Allergies Allergy/AdvReac Type Severity Reaction Status Date / Time No Known Drug Allergies Allergy Verified 04/09/24 08:38 Review of Systems Status of ROS: Reports: 10 or more systems reviewed and unremarkable except as noted in History and below [facility] Surgical History History of back surgery (2020) ?Z98.890 - Other specified postprocedural states (ICD-10) Social History Narrative: -Elena Alanis Smoking Status: Never smoker Do you use any of these nicotine containing products: None Second hand tobacco smoke exposure: No Exam Narrative: Exam Narrative: Well-nourished well-developed patient in no acute distress. Alert and oriented. Answers questions appropriately. Mood and affect are appropriate. Thoughts are goal oriented and rational. No tangential or magical thinking noted. Patient speaks in full sentences without needing to catch his breath. He does not appear ill or toxic. HEENT: Normocephalic atraumatic. Pupils are equally round reactive to light. Extraocular muscles are intact. Conjunctivae are moist without any icterus noted. Moist mucous membranes. Extremities: Left lower extremity appears normal, no edema, erythema or swelling. The right lower extremity shows swelling of the right foot with swelling, erythema and tenderness at the MTP of the big toe. He has no pain with passive range of motion of the toes or ankle. There is no induration of the skin, the foot and toe are not hot to touch when compared to the remainder of the extremity. He has normal DP and PT pulses. Skin: Well perfused . Const: Vital Signs, click to edit/add: Vital Signs - 24 hr 06/11/24 13:22 Temperature 97.1 F L Pulse Rate [Pulse Oximeter] 72 Respiratory Rate 16 Blood Pressure [Ri ght Upper Arm] 101/63 Pulse Oximetry 96 Oxygen Delivery Me thod Room Air Course Course ED Course: Differential diagnoses includes gout, cellulitis, septic arthritis. Given that the patient is having recurrent pain in the same location without systemic symptoms and without pain with passive range of motion I do think the cellulitis and septic arthritis or much less likely than gout. Vital Signs Vital signs: Initial Vital Signs Temperature 97.1 F L 06/11/24 13:22 Temperature Source Temporal Artery Scan 06/11/24 13:22 Pulse Rate 72 06/11/24 13:22 Respiratory Rate 16 06/11/24 13:22 Blood Pressure 101/63 06/11/24 13:22 Blood Pressure Mean 75 06/11/24 13:22 Blood Pressure Position Sitting 06/11/24 13:22 Pulse Oximetry 96 06/11/24 13:22 Oxygen Delivery Method Room Air 06/11/24 13:22 Vital Signs Temperature 97.1 F L 06/11/24 13:22 Pulse Rate 72 06/11/24 13:22 Respiratory Rate 16 06/11/24 13:22 Blood Pressure 101/63 06/11/24 13:22 Pulse Oximetry 96 06/11/24 13:22 Oxygen Delivery Method Room Air 06/11/24 13:22 Temperature 97.1 F L 06/11/24 13:22 Pulse Rate 72 06/11/24 13:22 Respiratory Rate 16 06/11/24 13:22 Blood Pressure 101/63 06/11/24 13:22 Pulse Oximetry 96 06/11/24 13:22 Oxygen Delivery Method Room Air 06/11/24 13:22 Medical Decision Making MDM Narrative Medical decision making narrative: 64-year-old male with foot pain, very classic appearance for gout. Without any systemic symptoms, pain confined to the MTP we will go ahead and treat for gout at this time with systemic steroids. Patient has an appoint with his primary care provider tomorrow. He is encouraged to keep this appointment to talk about gout treatment post acute flare up. It does sound like the patient has had multiple gout flare ups in the past. Uric acid levels drawn today. Discharge Plan Discharge Clinical Impression: Gout Instructions: Gout (ED) Additional Instructions: Start steroids as prescribed. You should take 40 mg which is 2 tablets, every day until your pain improves. This is usually around 2-5 days. Then slowly taper your medication per the instructions. You should follow-up with your primary care provider tomorrow to talk about prevention of gout going forward. Return to the emergency department if you develop weakness, fever or vomiting. Prescriptions: New prednisone 20 mg tablet 40 mg PO DAILY Qty: 20 0RF Rx Instructions: Take 40 mg p.o. daily until your pain improves, then slowly start to taper the dose as follows: 20 mg for 3 days, 10 mg for 3 days then stop. No Action albuterol sulfate 90 mcg/actuation HFA aerosol inhaler inhalation lisinopril 10 mg tablet 10 mg PO DAILY atenolol-chlorthalidone 50-25 mg tablet PO atorvastatin 40 mg tablet 40 mg PO DAILY Follow Up/Referrals: Jimmie Barrera MD [Primary Care Provider] - Stand Alone Forms: FRESSth Info Instructions
--- OUTSIDE RECORDS SUMMARY | 2024-06-11 13:51 | XMS_ITS | Continuity of Care Document ---
Author Organization [facility] Address [address] [place] [address] Phone Care Team Providers Care Loan Representative Name Role Phone Adolfo Magana MD Unavailable [...] on Encounter Office/Outpat ient Visit,Est, Mod [facility], [address], [facility], [place], [id number] , [place] tel:[phone] [facility] Spinal stenosis, lumbar region with neurogenic claudication Nov-0 3 [place]. [facility] [place], [address], [place], [place], [id number], [place]. tel:[phone] Referring Provider: David Keith, Helen [employer] [address], [place], [address]. tel:[phone] Office/Outpat ient Visit,Est, Low [facility], [address], [place], [place], [id number] , [place] tel: [phone] [facility] Spondylolisth esis, lumbar regionSpinal stenosis, lumbar region with neurogenic claudication Nov-2 2 [place]. [facility] [place], [address], [address], [place], [place], [id number], [place]. tel:[phone] Referring Provider: David Keith, [employer] [address], [place], [address]. tel:[phone] [facility], [address], [place], [place], [id number] , [place] tel: [phone] [facility] Encounter for other specified surgical aftercare 1 [place]. [facility] [place], [address], [facility] [address], [place], [id number], [place]. tel:[phone] Referring Provider: Helen Steinberg [employer] [address], [place], [address]. tel:[phone] [facility], [address], [place], [place], [id number] , [place] tel: [phone] [facility] Encounter for other specified surgical aftercare No Information Referring Provider: Helen Steinberg [employer] [address], [place], [address]. tel:[phone] [facility], [address], [place], [place], [id number] , [place] tel: [phone] [facility] No Information Apr-1 9-202 1 No Information Referring Provider: David Keith, [employer] [facility], [place], [address]. tel:[phone] [facility], [address], [place], [place], [id number] , tel:[phone] [facility] No Information 1 [place]. [facility] [place], [address], [place], [place], [id number], . tel:[phone] Referring Provider: David Keith, [employer] [facility], [place], [address]. tel:[phone] Office/Outpat ient Visit,[facility], [facility], [address], [place], [place], [id number] , tel:[phone] [facility] Spinal stenosis, lumbar region with neurogenic claudicationS pondylolysis, site unspecified 1 [place]. [facility] [place], [address], [place] [address], [place], [id number], [place]. tel:[phone] Referring Provider: David Keith [employer] [address] [facility], [place], [address]. tel:[phone] Family History Family Member Type Diagnosis Age At Onset No Information Payers Payer name Insurance type Covered alliance party ID Authorbassem leon(s) [employer] [id number] Social History Type Description Quantity Date Captured [...]
--- OUTSIDE RECORDS SUMMARY | 2024-06-11 13:51 | XMS_ITS | Clinical Summary ---
Author Organization [facility] Address [place], [place] [address] Care Team Providers Care Data Support Analyst Name Role Phone Jimmie Barrera MD Primary Care Provider [phone] Allergies No known active allergies Medications Medication [...] 12/03/2020 Family history of prostate cancer 10/11/2016 Overview (10/11/2016): Paternal uncle and many of his relatives with prostate cancer. Heriberto would prefer to continue yearly PSAs with this history as of 10/11/2016. [facility] HST Date 04/15/2015 ; AHI- 34 05/06/2015 Vitamin D deficiency 09/03/2013 Colon polyps 09/25/2008 Overview (11/16/2023): Colonoscopy in 5 years 12/2013 Colonoscopy 09/2013 polyps repeat in 5 years Colonoscopy 10/2018 polyps, repeat in 5 years Colonoscopy 10/2023 TA, SSA, repeat in 5 years Mixed hyperlipidemia 08/05/2008 Acute bronchospasm 08/19/2007 Overview (08/19/2007): Cold triggers. URI triggers. HYPERTENSION 08/16/2007 Encounters Date Type Department Care Team Description 04/01/2024 Orders Only [facility] Scanner 1 scan: (1-Ord) IVONNE, MR SHOULDER RT WO CON, 04/01/2024 03/25/2024 1:05 PM CDT Office Visit [facility] [address] [facility] [place] [address] Jimmie Barrera MD Musculoskeletal Problem (Right shoulder pain follow up ) 03/25/2024 Travel 03/21/2024 Telephone [facility] [address] [facility] [place] [address] Jimmie Barrera MD from Last 3 Months Immunizations Name Administration Dates Next Due Influenza, IIV3 (Age >=3 years) 07/23/2003 Td (Age >=7 Years) 04/15/2002 Tdap 10/07/2021,08/23/2011 Family History Medical History Relation Name Comments Cancer-prostate Father Heart Disease Father CT at 54 (smok er); he of a blood clot or CT at 88. Hypertension Father Heart Disease Maternal Grandfather CT x2 at 62 Arthritis Mother Cancer Mother [...] file 12/25/2023 Food Insecurity Answer Date Recorded Do you worry your food will run out before you are able to buy more? 1 12/25/2023 Transportation Needs Answer Date Record ed Lack of Transportation (Medical) 1 12/25/2023 Housing Stability Answer Date Recorded What is your housing situation today? 1 12/25/2023 Sex and Gender Information Value [...] 11/06/2023 1:57 PM CDT Plan of Treatment Upcoming Encounters Date Type Department Care Team (Late st Contact Info) Description 06/12/2024 10:25 AM CDT [place] [address] Fermín Lubin MD [address] [place] [address] 06/26/2024 10:00 AM LOCK CORNER MACHINE OPERATOR Preop Visit [facility] [address] [facility] [place] [address] Fermín Lubin MD [address] [place] [address] Health Maintenance Due Date Last Done Comments Zoster (shingles) series for age 50+ (1 of 2) 2008 Pneumococcal series for age 65+ (1 of 1 - PCV) 2023 COVID-19 vaccine series ( - 2023- season) 2024 Influenza for age 65+ 04/20/2024 07/23/2003 Depression [...] 18-79 Completed 10/06/2020 Tdap Completed 10/07/2021, 08/23/2011 Procedures Procedure Name Priority Date/Time Associated Diagnosis Comments SCAN-MRI INTERPRETATION 04/01/2024 12:00 AM CDT COLONOSCOPY SCREENING Routine 11/14/2023 10:25 AM CDT History of colon polyps LIPID PANEL W REFLEX MEASURED LDL Routine 10/24/2023 9:09 AM LOCK CORNER MACHINE OPERATOR Mixed hyperlipidemia ANTI HCV Routine 10/06/2020 9:55 AM LOCK CORNER MACHINE OPERATOR Need for hepatitis C screening test from Last 3 Months or Most Recently Relevant to Health Maintenance Results * SCAN-MRI INTERPRETATION (04/01/2024 12:00 AM CDT) Anatomical Region Laterality Modality Other Scanner OTHER * COLONOSCOPY (11/14/2023 10:32 AM CDT) 11/14/2023 [...] adequate candidate for conscious sedation. The endoscope [id number] was passed through the anus andadvanced to [...] 10:32 AM Procedure Code(s): --- Professional --- 13441, Colonoscopy, flexible; with removalof tumor(s), polyp(s), or other lesion(s) byba technique 43118, 59, Colonoscopy, flexible; withbiopsy, single or multiple Diagnosis Code(s): --- Professional --- D12.2, Benign neoplasm of ascending colon Z86.010, Personal history of colonicpolyps K57.30, Diverticulosis of large intestine without perforation or abscess withoutbleeding CPT copyright 2021 [employer]. All rights reserved. The codes documented in this report are preliminary and upon sueding machine operator reviewmay be revised to meet current compliance requirements. Scope In: 11:25:46 AM Scope Withdrawal Time 0 hours 8 minutes 11 seconds Scope Out: 11:41:00 AM Fei Gorman MD PROCEDURE ORD * (ABNORMAL) LIPID PANEL W REFLEX MEASURED LDL (10/24/2023 9:09 AM LOCK CORNER MACHINE OPERATOR) CHOLESTEROL,TOTAL 125 100 - 199 mg/dL 10/24/2023 6:16 PM [facility] [employer] Comment: Cholesterol, Total Reference Ranges Desirable <200 mg/dL Borderline 200-239 mg/dL High >=240 mg/dL TRIGLYCERIDES 171(H) <150 mg/dL 10/24/2023 6:16 PM LOCK CORNER MACHINE OPERATOR [facility] HDL CHOLESTEROL 25(L) >40 mg/dL 6:16 PM LOCK CORNER MACHINE OPERATOR [facility] NON-HDL CHOLESTEROL 100 <145 mg/dl 10/24/2023 6:16 PM LOCK CORNER MACHINE OPERATOR [facility] CHOL/HDL RATIO 5.00(H) <4.50 10/24/2023 6:16 PM LOCK CORNER MACHINE OPERATOR [facility] LDL CHOLESTEROL 66 <=130 mg/dL 10/24/2023 6:16 PM LOCK CORNER MACHINE OPERATOR [facility] VLDL CHOLESTEROL 34(H) <=30 mg/dL 10/24/2023 6:16 PM LOCK CORNER MACHINE OPERATOR [facility] PROVIDER ORDERED STATUS RANDOM 10/24/2023 6:16 PM [facility] Blood BLOOD SPECIMEN / Unknown Venipuncture / Unknown 10/24/2023 9:09 AM LOCK CORNER MACHINE OPERATOR 10/24/2023 9:09 AM LOCK CORNER MACHINE OPERATOR Jimmie Barrera MD [facility] [employer] [address] [place] [address], * ANTI HCV (10/06/2020 9:55 AM LOCK CORNER MACHINE OPERATOR) HEPATITIS C ANTIBODY Non-React francisco javier Non-React francisco javier 10/06/2020 5:43 PM LOCK CORNER MACHINE OPERATOR [facility] [employer] [facility] Comment:Antibodies to HCV no t detected; does not exclude the possibility of exposure to HCV. Blood BLOOD SPECIMEN / Unknown Venipuncture / Unknown 10/06/2020 9:55 AM LOCK CORNER MACHINE OPERATOR 10/06/2020 9:55 AM LOCK CORNER MACHINE OPERATOR Jimmie Barrera MD SEND OUTS Performing Organization Address City/[facility]/ZIP Co de Phone Number [facility] [address] [place] [address], from Last 3 Months or Most Recently [...] Comments Code Status Discussion: Discussed Care Teams Data Support Analyst Relationship Specialty Start Date End Date [place] [address] PCP - General 07/20/06
--- OUTSIDE RECORDS SUMMARY | 2024-06-11 13:51 | XMS_ITS | Data Portability ---
Author Organization [place] - [facility], [facility] Address [address] [address] Care Team Providers Care Military Personnel Specialist Name Role Phone KELY WHITTAKER Sleep Medicine [...] treatment option. A referral was sent to [facility] per patient request. 5. Information [...] bilateral posterior contacts is noted. A morning submarine diver was fabricated today and instructions on use [...] return for follow-up care in 4-6 weeks. [email or web address] Not available 06/29/2023 08:59:02 Plan of Treatment Reminders Order Date Submit Date Provider Last Modified By Organization Details Last Modified Time Details Appointments None recorded. Lab None recorded. Referral physical therapist referral 2022 023 [email or web address] Ping Fonseca PT, [address], [place], [address], 3 17:35:54 physical therapist referral 2022 023 [email or web address] Fonseca PT, [address], [place], [address], 3 21:32:47 sleep medicine referral - Please call patient to schedule 2022 023 CAMILLE Gandara MD, [address] [place], [address], 3 23:40:28 physical therapist referral - Please call patient to schedule a PT appointmen t. 2022 023 [facility], [address], [place], [address], 16:28:20 Procedures None recorded. Surgeries None recorded. Imaging None recorded. Medication Orders naproxen 500 mg tablet 2022 023 [facility], [address] [place], [address], 09:35:36 cyclobenza tani 5 mg tablet 2022 023 GUTIERREZ [facility], [address] [place], [address], 17:02:20 Patient TargetsNo targets recorded. Patient Instructions Encounter Date Encounter Id Patient Instructions Last Modified By Organization Details Last Modified Time 04/03/2023 [id number] Self Care for TMD Not availab le [...] Name Description Value Unit Range Abnormal Flag Note LastModifiedBy Organization Detail LastModifiedTime 04/04/2004/04/2023 imagi ng/di agnos tic resul t No observ ation record ed. [email or web address] Not Available 04/24 12:52:24 Result Notes None recorded. Problems Name Problem SNOMED Code Status Onset Date Resolution Date Notes Provider Name and Address Organization Details Recorded Time Cluster headache 037578409 Active 2022 ANGELIKA MCLEAN BDS,MS [address], [place], [address], [facility] 3 15:59:39 Myofascial pain 929717901 Active 2022 ANGELIKA MCLEAN BDS,MS [address], [place], [address], [facility] 3 17:30:05 Neck pain 92216910 Active 2022 ANGELIKA MCLEAN BDS,MS [address], [place], [address], [facility] 3 17:31:05 Medication overuse headache 377313287 Active 2022 ANGELIKA MCLEAN BDS,MS [address], [place], [address], [facility] 3 17:31:34 Obstructive sleep apnea of adult 1178230570802 Active 2022 sleep study 2014-A HI-34, low ox-80% Kenisha Gonzalez [facility] 3 14:07:24 Sleep related bruxism 755837326 Active 2022 ANGELIKA MCLEAN BDS,MS [address], [place], [address], [facility] 3 17:34:50 Chronic tension-typ e headache 468580774 Active 2022 ANGELIKA CHELSEA MCLEAN,MS [address] [facility] [address], [place], [address], [facility] 3 23:32:49 Problem Notes None recorded. Procedures Surgical History Date Name Laterality Status Provider Name and Address Organization Details Recorded Time 3 Trigger point injection completed ANGEILKASUKHWINDER MCLEAN BDS,MS [address] [facility] [address], [place], [address], [facility] 2023 10:54:02 1 Back Surgery completed Kenisha Gonzalez [facility] 04/03/2023 14:18:22 Imaging Results Imaging Date Name Status LastModified by [facility] Details LastModified Time 04/04/2023 imaging/diag nostic result [email or web address] Information not available 04/24/2023 12:52:24 Procedure Notes [...] /min 120 mm[Hg] 68 mm[Hg] Kenisha REBOLLEDO [facility] 2023 09:35:07 Date Recorded Heart rate Systolic blood pressure Diastolic blood pressure Provider Name and Address Organization Details Last Updated DateTime 06/26/2023 70 /min 121 mm[Hg] 70 mm[Hg] Kenisha REBOLLEDO [facility] 06/26/2023 09:31:55 Date Recorded Heart rate Systolic blood pressure Diastolic blood pressure Provider Name and Address Organization Details Last Updated DateTime 04/03/2023 72 /min 105 mm[Hg] 63 mm[Hg] Kenisha REBOLLEDO [facility] 04/03/2023 14:36:13 Social History Question Answer Notes LastModified by Organizat ion Details LastModified Time Tobacco Smoking Status Never Smoker Kenisha faith [facility] 04/03/2023 14:18:15 [...] Or The Highest Degree You Have Received? SF17498-6 Information not available 04/03/2023 What Is Your [...] Anxious, Or Unable To Sleep At Night)? CO2782-5 Information not available 04/03/2023 Do You Use Any Illicit Or Recreational Drugs? No Information not available 04/03/2023 Sex: Unknown Functional Status Question Answer Note LastModified by Organization D etails LastModified Time What is your exercise level? Moderate Information not available 04/03/2023 Mental Status None recorded. Family History Relationship Description Onset Age of this Age Resolved Age Notes LastModified by Organization Details LastModified Time Father No current problems or disability ssylvers Not available 05/08 09:32:43 Mother No current problems or disability ssylvers Not available 05/08 09:32:44 Medical History Condition Response Headaches Y Hypertension Y Obstructive Sleep Apnea Y High Cholesterol Y Past Encounters Encounter ID Performer Location Encounter Start Date Encounter Closed Date Diagnosis/Indication Diagnosis SNOMED-CT Code Diagnosis ICD10 Code [id number] ANGELIKA MCLEAN BDS,MS [place] [address] [place] [address] 04/03/2023 14:15:20 04/03/2023 16:16:58 Myofascial pain 603261073 M79.11 M79.12 Neck pain 68362066 M54.2 Medication overuse headache 697510336 G44.40 Obstructiv e sleep apnea of adult 9232721963 103 G47.33 Sleep related bruxism 27 0514925 G47.63 [id number] ANGELIKA MCLEAN BDS,MS [place] [address] [place] [address] 04/17/2023 08:58:12 04/17/2023 09:36:45 Obstructive sleep apnea of adult 2436617397 103 G47.33 Cluster headache 7625844 09 G44.009 Sleep related bruxism 27 9691229 G47.63 Myofascial pain 85826605 9 M79.11 M79.12 Medication overuse headache 436283322 G44.40 Neck pain 38421930 M54.2 [id number] ANGELIKA MCLEAN, RICK[place],MS [place] [address] [place] [address] 05/08/2023 09:03:45 05/08/2023 10:15:40 Obstructive sleep apnea of adult 2721386069 103 G47.33 Cluster headache 7804987 09 G44.009 Sleep related bruxism 27 5615854 G47.63 Myofascial pain 22917643 9 M79.11 M79.12 Neck pain 51542604 M54.2 Chronic te nsion-type headache 648245147 G44.229 [id number] ANGELIKA HERNANDEZUN RICKIES,MS [place] [address] [place] [address] 2023 09:27:36 2023 10:34:22 Obstructive sleep apnea of adult 2145087636 103 G47.33 Neck pain 57462469 M54.2 Myofascial pain 16575381 9 M79.11 M79.12 Sleep related bruxism 27 1976149 G47.63 Chronic te nsion-type headache 814329813 G44.229 [id number] ANGELIKA MCLEAN RICKIES,MS [place] [address] [place] [address] 06/26/2023 09:23:27 06/26/2023 10:34:58 Obstructive sleep apnea of adult 5025487479 103 G47.33 Chronic te nsion-type headache 897000729 G44.229 Sleep related bruxism 27 3447015 G47.63 Myofascial pain 00853316 9 M79.11 M79.12 Neck pain 64618641 M54.2 Health Concerns Section Related Observation LastModified by Organization Detai ls LastModified Time None Recorded Concern Status LastModified by Organization Details LastModified Time None Recorded Advance Directives Directive None Recorded Payers Encounter Date Sequence Insurance Name Policy Number Policy Bennett Covered Member ID Bennett Member ID Guarantor Name 04/03/2023 1 [facility] [id number] Heriberto Luna [place] [id number] Heriberto Luna [place]house 04/17/2023 1 [employer] [id number] Heriberto A Moorhouse [id number] Heriberto A Moorhouse 05/08/2023 1 [facility] [id number] Heriberto Luna [place]house [id number] Heriberto Luna [place]house 2023 1 [employer] [id number] Heriberto Luna [place] [id number] Heriberto A Moorhouse 06/26/2023 1 [place] [facility] Heriberto Luna Moorhouse [id number] Heriberto Luna [place] Notes Date Note Type Note Provider [...] like behind his eye and in his episcopalian, he had a biopsy from a neurologist [...] in right back of neck, refers to episcopalian, back of neck, of intensity 3/10. He [...] had cluster headaches since. Heriberto works in Sales. AGNELIKA MCLEAN, BDS,MS [address] [facility] [address], [place], [address], [facility] 04/08/2023 17:36:03 [...] we discussed going and buying one at [facility] vs waiting till june to see doctor. LR Heriberto reports that his symptoms have been improving - he reports 50% improvement in symptoms. He attributes it to using the Naproxen since last larissa he has a week of Naproxen left, [...] or sound sensitivity with the headaches. His [place] today is 9 rendered virtually. ANGELIKA MCELAN Eloisa,MS [address] [facility] [address], [place], [address], [facility] 04/22/2023 07:52:27 [...] will switch to Medicare after that. ANGELIKA MCLEAN BDS,MS [address] [facility] [address], [place], [address], [facility] 05/12/2023 23:33:48 2023 text/html HPI Notes: Sleep Apnea Reported by patient. Severity/status: severity of apnea: AHI=34; date of last odxamtylgyjruoa76/31/2 015; lowest oxygen saturation 80-91% 80 Interference: [...] (S)he is not using the morning bite submarine diver as recommended. Adjustments to the oral appliance [...] Heriberto reports experiencing headaches in the right episcopalian described as a dull achy pain 2x/week [...] forward to being able to relax. ANGELIKA MCLEAN, RICKIES,MS [address] [facility] [address], [place], [address], [facility] 2023 16:26:09 06/26/2023 text/html HPI Notes: Sleep Apnea Reported by patient. Severity/status: severity of apnea: AHI=34; date of last ahwjrdvmqiosnvs85/31/2 015; lowest oxygen saturation 80-91% 80 Interference: [...] (S)he is not using the morning bite submarine diver as recommended. Adjustments to the oral appliance [...] and relaxing his muscles. He reports that halfway has helped with his stress and keeping [...] the MAD and treating his apnea. ANGELIKA MCLEAN, CHELSEA,MS [address] [facility] [address], [place], [address], [facility] 06/29/2023 08:59:58
[2024-06-11 14:05] LABS: Uric Acid* 8.2 mg/dL (2.2-8.4)
== END 2024-06-11 14:09 | disposition home or self-care (01) ==
PROVIDERS: Emergency Provider Family Medicine; PCP Family Medicine
DX: M10.9 Gout, unspecified (principal)
CPT/HCPCS: 36415; 84550; 99283; 99284

== ENCOUNTER 2024-07-10 07:12 | Day surgery (SDC) | payer MEDICARE, BC, SELFPAY ==
[2024-07-10] VITALS (20 sets, daily range): BP systolic 103–166; BP diastolic 58–79; PULSE 49–535; RESP 16–21; TEMP 36.2–36.8; O2SAT 90–96; BMI 30.2
--- OUTSIDE RECORDS SUMMARY | 2024-07-10 07:15 | XMS_ITS | Continuity of Care Document ---
Author Organization [facility] Address [address] [place] [address] Phone Care Team Providers Care Music Pastor Name Role Phone Adolfo Magana MD Unavailable [...] on Encounter Office/Outpat ient Visit,Est, Mod [facility], [address], [facility], [place], [id number] , [place] tel:[phone] [facility] Spinal stenosis, lumbar region with neurogenic claudication Nov-0 3 [place] Mata. [facility], [address], [address], [place], [id number], [place]. tel:[phone] Referring Provider: David Keith, Helen [employer] [address], [place], [address]. tel:[phone] Office/Outpat ient Visit,Est, Low [facility], [address], [place], [place], [id number] , [place] tel: [phone] [facility] Spondylolisth esis, lumbar regionSpinal stenosis, lumbar region with neurogenic claudication Nov-2 2 [place] Mata. [facility], [address], [address], [place], [place], [id number], [place]. tel:[phone] Referring Provider: David Keith, [facility] [address], [place], [address]. tel:[phone] [facility], [address], [place], [id number] , [place] tel: [phone] [facility] Encounter for other specified surgical aftercare 1 [place] Mata. [facility], [address], [facility] [address], [place], [id number], [place]. tel:[phone] Referring Provider: Helen Steinberg [employer] [address], [place], [address]. tel:[phone] [facility], [address], [place], [place], [id number] , [place] tel: [phone] [facility] Encounter for other specified surgical aftercare No Information Referring Provider: Helen Steinberg [employer] [address], [place], [address]. tel:[phone] [facility], [address], [place], [place], [id number] , [place] tel: [phone] [facility] No Information Apr-1 9-202 1 No Information Referring Provider: David Keith, [facility], [place], [address]. tel:[phone] [facility], [address], [place], [place], [id number] , tel:[phone] [facility] No Information 1 [place] Mata. [facility], [address], [address], [place], [id number], . tel:[phone] Referring Provider: David Keith, [employer] [facility], [place], [address]. tel:[phone] Office/Outpat ient Visit,[facility], [facility], [address], [place], [place], [id number] , tel:[phone] [facility] Spinal stenosis, lumbar region with neurogenic claudicationS pondylolysis, site unspecified 1 [place] Mata. [facility], [address], [address], [place], [id number], [place]. tel:[phone] Referring Provider: David Keith [employer] [address] [facility], [place], [address]. tel:[phone] Family History Family Member Type Diagnosis Age At Onset No Information Payers Payer name Insurance type Covered constitution party ID Authorbassem leon(s) [facility] [id number] Social History Type Description Quantity Date Captured [...]
--- OUTSIDE RECORDS SUMMARY | 2024-07-10 07:15 | XMS_ITS | Clinical Summary ---
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 Patient does not use CPAP. SBliek 01/05/2023. 0 01/05/2023 Active albuterol HFA (PRO-AIR; VENTOLIN; PROVENTIL) 90 mcg/actuation inhalerIndications: Acute bronchospasm Inhale 2 Puffs by mouth every 4 hours if needed (cough). 1 Each 5 10/24/2023 Active lisinopriL (PRINIVIL; ZESTRIL) 10 mg tabletIndications:H ypertension, unspecified type,Routine physical examination TAKE ONE TABLET BY MOUTH EVERY EVENING 90 Tablet 4 10/24/2023 Active atorvastatin (LIPITOR) 40 mg tabletIndications:M ixed hyperlipidemia Take 1 Tablet (40 mg) by mouth once daily. 90 Tablet 4 10/24/2023 Active atenolol-chlorthali done, 50-25 mg, (TENORETIC 50) 50-25 mg tabletIndications:H ypertension, unspecified type TAKE ONE-HALF TABLET BY MOUTH DAILY 45 Tablet 4 10/24/2023 Active allopurinoL (ZYLOPRIM) 100 mg tabletIndications:H istory of gout take 100mg by mouth once daily f 90 Tablet 3 06/12/2024 Active predniSONE (DELTASONE) 20 mg tablet 06/11/2024 4 Discontinu ed(*Patien t states no longer taking) Active Problems Problem Noted Date Diagnosed Date [...] Encounters Date Type Department Care Team Description 06/26/2024 10:00 AM MAITRE D' Preop Visit [facility] [address] [place] [address] Fermín Lubin MD Preoperative Exam (Rt shoulder, [place], Dr. Olivas, 07/10/24) 06/26/2024 Travel 06/12/2024 10:25 AM CDT Office Visit [facility] [address] [place] [address] Fermín Lubin MD ER Follow up ([place], rt foot gout, 06/11/23) 06/12/2024 Travel 06/11/2024 Orders Only [facility] Scanner 1 scan: (1-Ord) [facility], URIC ACID, 06/11/2024 from Last 3 Months Immunizations Name Administration Dates Next Due Influenza, IIV3 (Age >=3 years) 07/23/2003 Td (Age >=7 Years) 04/15/2002 Tdap 10/07/2021,08/23/2011 Family History Medical History Relation Name Comments Cancer-prostate Father Heart Disease Father [place] at 54 (smok er); he of a blood clot or [place] at 88. Hypertension Father Heart Disease Maternal Grandfather [place] x2 at 62 Arthritis Mother Cancer Mother [...] Never Smokeless Tobacco: Never Tobacco Cessation:Counseling Given: Yes Alcohol Use Standard Drinks/Week Comments No 0 (1 standard drink = 0.6 oz pur e alcohol) PHQ-2 Answer Date Recorded PHQ-2 TOTAL SCORE 0 10/24/2023 Social Connections Answer Date Recorded Do you often feel lonely or isolated from those around you? 0 12/25/2023 Financial Resource Strain Answer Date R ecorded Difficulty of Paying Living Expenses 3 12/25/2023 Difficulty of Paying Living Expenses Not on file 12/25/2023 Food Insecurity Answer Date Recorded Do you worry your food will run out before you are able to buy more? 1 12/25/2023 Transportation Needs Answer Date Record ed Does lack of transportation keep you from medica l appointments? 1 12/25/2023 Does lack of transportation keep you from work, meetings or getting things that you need? 1 12/25/2023 Housing Stability Answer Date Recorded What is your housing situation today? 1 12/25/2023 Sex and Gender Information Value Date Recorded Sex Assigned at Not on file Gender Identity Not on file Sexual Orientation Not on file Obstetrics History Last Filed Vital Signs Vital Sign Reading Time Taken Comments Blood Pressure 94/61 06/26/2024 10:09 AM MAITRE D' Pulse 73 06/26/2024 10:09 AM MAITRE D' Temperature 36.7 C (98.1 F) 06/26/2024 10:09 AM MAITRE D' Respiratory Rate 16 11/14/2023 11:5 5 AM CDT Oxygen Saturation 96% 06/26/2024 10: 09 AM MAITRE D' Inhaled Oxygen Concentration - - Weight 100.8 kg (222 lb 3.2 oz) 024 10:09 AM MAITRE D' Height 182.9 cm (6') 06/26/2024 10:09 AM MAITRE D' Body Mass Index 30.14 06/26/2024 10:09 AM MAITRE D' Plan of Treatment Health Maintenance Due Date Last Done Comments Zoster (shingles) series for age 50+ (1 of 2) 2008 Pneumococcal series for age 65+ (1 of 1 - PCV) 2023 COVID-19 vaccine series (1 - 2023-25 season) 2024 Influenza for age 65+ 04/20/2024 07/23/2003 Depression screening for age 12+ 10/24/2024 10/25/2023, 10/24/2023, 10/24/2023, Additional history exists Medicare Wellness for age 65+ 10/24/2024 10/24/2023 BMI (ht and wt on same day) for age 18+ 06/26/2025 06/26/2024, 06/12/2024, 11/06/2023, Additional history exists Lipids for age 45-75 10/23/2028 10/24/2023, 10/09/2022, 10/07/2021, Additional history exists Colonoscopy through age 75 11/13/202811/13, 11/14/2023, 11/14/2023, Additional history exists Tetanus booster 10/07/2031 10/07/2021, 11/2011, 04/15/2002 Hepatitis C screening for ag e 18-79 Completed 10/06/2020 Tdap Completed 10/07/2021, 08/23/2011 Procedures Procedure Name Priority Date/Time Associated Diagnosis Comments EKG 12 LEAD Routine 06/26/2024 1:49 PM MAITRE D' Essential hypertension SC READING EKG - NO CHARGE, COMP ONLY Routine 06/26/2024 1:48 PM MAITRE D' Essential hypertension URIC ACID Routine 06/26/2024 10:59 AM MAITRE D' BASIC METABOLIC PANEL Routine 06/26/2024 10:59 AM MAITRE D' Essential hypertension CBC WITH AUTO DIFFERENTIAL Routine 06/26/2024 10:59 AM MAITRE D' Essential hypertension SCAN-LABORATORY REPORT 06/11/2024 12:00 AM CDT COLONOSCOPY SCREENING Routine 11/14/2023 10:25 AM CDT History of colon polyps LIPID PANEL W REFLEX MEASURED LDL Routine 10/24/2023 9:09 AM MAITRE D' Mixed hyperlipidemia ANTI HCV Routine 10/06/2020 9:55 AM MAITRE D' Need for hepatitis C screening test from Last 3 Months or Most Recently Relevant to Health Maintenance Results * EKG 12 LEAD (06/26/2024 1:49 PM MAITRE D') Fermín Lubin MD EKG ORD * SC READING EKG - NO CHARGE, COMP ONLY (06/26/2024 1:48 PM MAITRE D') Fermín Lubin MD PB - PROVIDER RE ADINGS * (ABNORMAL) CBC AND DIFFERENTIAL (06/26/2024 10:59 AM MAITRE D') WHITE BLOOD CELL COUNT 10.2 3.8 - 10.8 Thousand/u L [facility] RED BLOOD CELL COUNT 5.19 4.20 - 5.80 Million/uL [facility] HEMOGLOBIN 15.6 13.2 - 17.1 g/dL [facility] HEMATOCRIT 47.3 38.5 - 50.0 % [facility] MCV 91.1 80.0 - 100.0 fL [facility] MCH 30.1 27.0 - 33.0 pg [facility] MCHC 33.0 32.0 - 36.0 g/dL [facility] Comment: For adults, a slight decrease in the calculated MCHC value (in the range of 30 to 32 g/dL) is most likely not clinically significant; however, it should be interpreted with caution in correlation with other red cell parameters and the patient's clinical condition. RDW 12.5 11.0 - 15.0 % [facility] PLATELET COUNT 316 140 - 400 Thousand/u L [facility] MPV 10.1 7.5 - 12.5 fL [facility] ABSOLUTE NEUTROPHILS 7,477 1,500 - 7,800 cells/uL [facility] ABSOLUTE LYMPHOCYTES 1,255 850 - 3,900 cells/uL [facility] ABSOLUTE MONOCYTES 1,000(H) 200 - 950 cells/uL [facility] ABSOLUTE EOSINOPHILS 418 15 - 500 cells/uL [facility] ABSOLUTE BASOPHILS 51 0 - 200 cells/uL [facility] NEUTROPHILS 73.3 % [facility] LYMPHOCYTES 12.3 % [facility] MONOCYTES 9.8 % [facility] EOSINOPHILS 4.1 % [facility] BASOPHILS 0.5 % [facility] Blood BLOOD SPECIMEN / Unknown 06/26/2024 10:59 AM MAITRE D' 06/26/2024 10:59 AM MAITRE D' Fermín Lubin MD HEMATOLOGY Performing Organization Address City/[facility]/ZIP Co de Phone Number [facility] [address] [place] [address], [place] [phone] [facility] [address] [place] [address] * URIC ACID (06/26/2024 10:59 AM MAITRE D') Pathologist [facility] URIC ACID 7.0 4.0 - 8.0 mg/dL [facility] Comment: Therapeutic target for gout patients: <6.0 mg/dL 06/26/2024 10:5 9 AM MAITRE D' 06/26/2024 10:59 AM MAITRE D' Fermín Lubin MD CHEMISTRY Performing Organization Address City/[facility]/ZIP Co de Phone Number [facility] [address] [place] [address], [place] [phone] [facility] [address] [place] [address] * (ABNORMAL) BASIC METABOLIC PANEL (06/26/2024 10:59 AM MAITRE D') GLUCOSE 84 65 - 99 mg/dL [facility] Comment: Fasting reference interval UREA NITROGEN (BUN) 29(H) 7 - 25 mg/dL [facility] CREATININE 1.22 0.70 - 1.35 mg/dL [facility] EGFR 65 > OR = 60 mL/min/1.7 3m2 [facility] BUN/CREATININE RATIO 24(H) 6 - 22 (calc) [facility] SODIUM 141 135 - 146 mmol/L [facility] POTASSIUM 4.4 3.5 - 5.3 mmol/L [facility] CHLORIDE 104 98 - 110 mmol/L [facility] CARBON DIOXIDE 28 20 - 32 mmol/L [facility] ELECTROLYTE BALANCE 9 7 - 17 mmol/L (calc) [facility] CALCIUM 9.5 8.6 - 10.3 mg/dL [facility] Blood BLOOD SPECIMEN / Unknown 06/26/2024 10:59 AM MAITRE D' 06/26/2024 10:59 AM MAITRE D' Fermín Lubin MD CHEMISTRY [facility] [address] [place] [address], [facility] [address] [place] [address] * SCAN-LABORATORY REPORT (06/11/2024 12:00 AM CDT) Scanner OTHER * COLONOSCOPY (11/14/2023 10:32 AM CDT) 11/14/2023 10:3 2 AM CDT Narrative Transcriptions Fei Gorman MD - 11/14/2023 11:46 AM CDT Patient Name: Heriberto Ervin Procedure Date: 11/14/2023 Gender: Male Date of : 1960 Admit Type: Outpatient Procedure: Colonoscopy Proceduralist: Fei Gorman MD , Madelin Terrell RN(Nurse), Sagrario Patiño (Nurse) Referring MD: Jimmie Barrera [...] adequate candidate for conscious sedation. The endoscope [id number] was passed through the anus andadvanced to [...] 10:32 AM Procedure Code(s): --- Professional --- 60931, Colonoscopy, flexible; with removalof tumor(s), polyp(s), or other lesion(s) bysnare technique 21161, 59, Colonoscopy, flexible; withbiopsy, single or multiple Diagnosis Code(s): --- Professional --- D12.2, Benign neoplasm of ascending colon Z86.010, Personal history of colonicpolyps K57.30, Diverticulosis of large intestine without perforation or abscess withoutbleeding CPT copyright 2021 [employer]. All rights reserved. The codes documented in this report are preliminary and upon head well puller reviewmay be revised to meet current compliance requirements. Scope In: 11:25:46 AM Scope Withdrawal Time 0 hours 8 minutes 11 seconds Scope Out: 11:41:00 AM Fei Gorman MD PROCEDURE ORD * (ABNORMAL) LIPID PANEL W REFLEX MEASURED LDL (10/24/2023 9:09 AM MAITRE D') CHOLESTEROL,TOTAL 125 100 - 199 mg/dL 10/24/2023 6:16 PM MAITRE D' [facility] Comment: Cholesterol, Total Reference Ranges Desirable <200 mg/dL Borderline 200-239 mg/dL High >=240 mg/dL TRIGLYCERIDES 171(H) <150 mg/dL 10/24/2023 6:16 PM MAITRE D' [facility] HDL CHOLESTEROL 25(L) >40 mg/dL 6:16 PM MAITRE D' [facility] NON-HDL CHOLESTEROL 100 <145 mg/dl 10/24/2023 6:16 PM MAITRE D' [facility] CHOL/HDL RATIO 5.00(H) <4.50 10/24/2023 6:16 PM MAITRE D' [facility] LDL CHOLESTEROL 66 <=130 mg/dL 10/24/2023 6:16 PM MAITRE D' [facility] VLDL CHOLESTEROL 34(H) <=30 mg/dL 10/24/2023 6:16 PM MAITRE D' [facility] PROVIDER ORDERED STATUS RANDOM 10/24/2023 6:16 PM MAITRE D' [facility] Blood BLOOD SPECIMEN / Unknown Venipuncture / Unknown 10/24/2023 9:09 AM MAITRE D' 10/24/2023 9:09 AM MAITRE D' Jimmie Barrera MD CHEMISTRY [facility] [address] [place] [address] * ANTI HCV (10/06/2020 9:55 AM MAITRE D') HEPATITIS C ANTIBODY Non-React francisco javier Non-React francisco javier 10/06/2020 5:43 PM MAITRE D' [facility] Comment:Antibodies to HCV no t detected; does not exclude the possibility of exposure to HCV. Blood BLOOD SPECIMEN / Unknown Venipuncture / Unknown 10/06/2020 9:55 AM MAITRE D' 10/06/2020 9:55 AM MAITRE D' Jimmie Barrera MD SEND OUTS [facility] [address] [place] [address], from Last 3 Months or Most Recently [...] Comments Code Status Discussion: Discussed Care Teams Fur Sorter Relationship Specialty Start Date End Date Jimmie Barrera MD [facility] [place] [address] PCP - General 07/20/06
--- OUTSIDE RECORDS SUMMARY | 2024-07-10 07:15 | XMS_ITS | Data Portability ---
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 A referral was sent to [facility] per patient request. 5. Information [...] bilateral posterior contacts is noted. A morning press clippings cutter and paster was fabricated today and instructions on use [...] [facility], [address], [place], [address], 3 17:35:54 physical therapist referral 2022 023 [email or web address] [facility]on[facility]a PT, [address], [place], [address], 3 21:32:47 sleep medicine referral - Please call patient to schedule 2022 023 CAMILLE Gandara MD, [address] [place], [address], 3 23:40:28 physical therapist referral - Please call patient to schedule a PT appointmen t. 2022 023 [facility], [address], [place], [address], 16:28:20 Procedures None recorded. Surgeries None recorded. Imaging None recorded. Medication Orders naproxen 500 mg tablet 2022 023 [facility], [address] [place], [address], 09:35:36 cyclobenza tani 5 mg tablet 2022 023 GUTIERREZ [facility], [address] [place], [address], 17:02:20 Patient TargetsNo targets recorded. Patient Instructions Encounter Date Encounter Id Patient Instructions Last Modified By Organization Details Last Modified Time 04/03/2023 [id number] Self Care for TMD Not availab le 04/08/2023 17:35:54 oral appliance preparation* Not available 04/08/2023 17:35:54 Contributing factors identified at today's appointment include: postural factors, daytime clenching, sleep bruxism. Not available 04/08/2023 17:34:00 Reason for Referral Physical Therapist Referral for Myofascial pain Referring Physician: Florinda Hernandez Management, Encounter Date: 04/03/2023 Sleep Medicine Referral for Obstructive sleep apnea of adult Patient has a previous diagnosis of Severe ALLI-reevaluation. Currently being treated for headaches. Please call patient to schedule Referring Physician: Florinda Hernandez Management, Encounter Date: 05/08/2023 Physical Therapist Referral for Myofascial pain Referring Physician: Florinda Hernandez, Encounter Date: 05/08/2023 Physical Therapist Referral for Myofascial pain Evaluate and treat myofasical pain of masticatory and cervical muscles Please call patient to schedule a PT appointment. Referring Physician: Florinda Hernandez, Encounter Date: 2023 Results Created Date Observation Date Name Description Value Unit Range Abnormal Flag Note LastModifiedBy Organization Detail LastModifiedTime 04/04/2004/04/2023 imagi ng/di agnos tic resul t No observ ation record ed. [email or web address] Not Available 04/24 12:52:24 Result Notes None recorded. Problems Name Problem SNOMED Code Status Onset Date Resolution Date Notes Provider Name and Address Organization Details Recorded Time Cluster headache 681119638 Active 2022 NAHEED MCLEAN BDS,MS [address], [place], [address], [facility] 3 15:59:39 Myofascial pain 712431154 Active 2022 NAHEED MCLEAN BDS,MS [address], [place], [address], [facility] 3 17:30:05 Neck pain 44257061 Active 2022 NAHEED MCLEAN BDS,MS [address], [place], [address], [facility] 3 17:31:05 Medication overuse headache 762839970 Active 2022 NAHEED MCLEAN BDS,MS [address], [place], [address], [facility] 3 17:31:34 Obstructive sleep apnea of adult 6325955866241 Active 2022 sleep study 2014-A HI-34, low ox-80% Kenisha Gonzalez [facility] 3 14:07:24 Sleep related bruxism 944281759 Active 2022 NAHEED MCLEAN BDS,MS [address], [place], [address], [facility] 3 17:34:50 Chronic tension-typ e headache 712119925 Active 2022 NAHEED MCLEAN BDS,MS [address], [place], [address], [facility] 3 23:32:49 Problem Notes None recorded. Procedures Surgical History Date Name Laterality Status Provider Name and Address Organization Details Recorded Time 3 Trigger point injection completed NAHEED VINAY, BDS,MS [address] [facility] [address], [place], [address], [facility] 2023 10:54:02 1 Back Surgery completed Kenisha Gonzalez [facility] 04/03/2023 14:18:22 Imaging Results Imaging Date Name Status LastModified by Organiz ation Details LastModified Time 04/04/2023 imaging/diag nostic result completed [email or web address] Information not available 04/24/2023 12:52:24 Procedure Notes [...] 69 /min 120 mm[Hg] 68 mm[Hg] Kenisha Gonzalez [facility] 2023 09:35:07 Date Recorded Heart rate Systolic blood pressure Diastolic blood pressure Provider Name and Address Organization Details Last Updated DateTime 06/26/2023 70 /min 121 mm[Hg] 70 mm[Hg] Kenisha Gonzalez [facility] 06/26/2023 09:31:55 Date Recorded Heart rate Systolic blood pressure Diastolic blood pressure Provider Name and Address Organization Details Last Updated DateTime 04/03/2023 72 /min 105 mm[Hg] 63 mm[Hg] Kenisha Gonzalez [facility] 04/03/2023 14:36:13 Social History Question Answer Notes LastModified by Organizat ion Details LastModified Time Tobacco Smoking Status Never Smoker [facility] 04/03/2023 14:18:15 [...] Or The Highest Degree You Have Received? [id number] Information not available 04/03/2023 What Is Your [...] Anxious, Or Unable To Sleep At Night)? [id number] Information not available 04/03/2023 Do You Use [...] 09:32:44 Medical History Condition Response Headaches Y Obstructive Sleep Apnea Y Hypertension Y High Cholesterol Y Past Encounters Encounter ID Performer Location Encounter Start Date Encounter Closed Date Diagnosis/Indication Diagnosis SNOMED-CT Code Diagnosis ICD10 Code [id number] NAHEED MCLEAN BDS,MS [place] [address] [place] [address] 04/03/2023 14:15:20 04/03/2023 16:16:58 Myofascial pain 252056332 M79.11 M79.12 Neck pain 19505008 M54.2 Medication overuse headache 819005831 G44.40 Obstructiv e sleep apnea of adult 7540374533 103 G47.33 Sleep related bruxism 27 6467533 G47.63 [id number] NAHEED MCLEAN BDS,MS [place] [address] [place] [address] 04/17/2023 08:58:12 04/17/2023 09:36:45 Obstructive sleep apnea of adult 6272008003 103 G47.33 Cluster headache 2376582 09 G44.009 Sleep related bruxism 27 1914140 G47.63 Myofascial pain 30718373 9 M79.11 M79.12 Medication overuse headache 649814842 G44.40 Neck pain 90067461 M54.2 [id number] NAHEED VINAY, BDS,MS [place] [address] [place], [place] [address] 05/08/2023 09:03:45 05/08/2023 10:15:40 Obstructive sleep apnea of adult 7767712378 103 G47.33 Cluster headache 1263512 09 G44.009 Sleep related bruxism 27 0341121 G47.63 Myofascial pain 66955611 9 M79.11 M79.12 Neck pain 17928527 M54.2 Chronic te nsion-type headache 353753356 G44.229 [id number] RICKIE HERNANDEZS,MS [place] [address] [place], [place] [address] 2023 09:27:36 2023 10:34:22 Obstructive sleep apnea of adult 9953453841 103 G47.33 Neck pain 91055088 M54.2 Myofascial pain 73277230 9 M79.11 M79.12 Sleep related bruxism 27 8576843 G47.63 Chronic te nsion-type headache 223165528 G44.229 [id number] RICKIE HERNANDEZS,MS [place] [address] [place], [place] [address] 06/26/2023 09:23:27 06/26/2023 10:34:58 Obstructive sleep apnea of adult 1744358677 103 G47.33 Chronic te nsion-type headache 311901639 G44.229 Sleep related bruxism 27 1497207 G47.63 Myofascial pain 88427196 9 M79.11 M79.12 Neck pain 25422698 M54.2 Health Concerns Section Related Observation LastModified by Organization Detai ls LastModified Time None Recorded Concern Status LastModified by Organization Details LastModified Time None Recorded Advance Directives Directive None Recorded Payers Encounter Date Sequence Insurance Name Policy Number Policy Bennett Covered Member ID Bennett Member ID Guarantor Name 04/03/2023 1 [facility] [id number] Heriberto A [place] [id number] [facility] 04/17/2023 1 [facility] [id number] Heriberto A Moorhouse [id number] Heriberto Luna Moorhouse 05/08/2023 1 [facility] [id number] Heriberto Luna [place]house [id number] Heriberto Luna [place]house 2023 1 [facility] [id number] Heriberto Luna [place] [id number] Heriberto Luna [place]house 06/26/2023 1 [place] [employer] [facility] Heriberto Luna Moorhouse [id number] Heriberto Luna [place]house Notes Date Note Type Note Provider Name and Address Organization Details Recorded Time 04/03/2023 text/html general HPI for jaw, face, TMD painReported bypatient.Location:righ t; [facility]; mandibular; temporal; has a tight neck on right side Quality:shooting; sharp; stabbing Severity:moderate; pain level 3-7/10; radiating to the head Durationconstant; not improving or worsening Symptom triggers:clenching; bruxism; stress; poor sleep Aggravating Factors:grinding teeth Alleviating Factors:acetaminophen; heat; ice; chiropractic Associated Symptoms:headaches Prior Tests:MRI Prior Treatment:NSAID trial [facility] Symptoms statusunchanged Patient presents today for evaluation of a possible temporomandibular disorder. These symptoms are {{acute chronic*}} and began with {{ no clear triggering events* significant stress and tension}}. Previous consultation include {{ none evaluation with his/her primary care provider* evaluation with his/her dentist evaluation with both his/her dentist and primary care provider}}. Symptoms are {{right sided only* left sided only bilateral}} and aggravated by {{ no clear triggers jaw use and function clenching and grinding of their teeth* stress and tension}}. The patient is {{aware* not aware}} of teeth clenching and grinding. Heriberto presents [...] like behind his eye and in his taoism, he had a biopsy from a neurologist [...] in right back of neck, refers to taoism, back of neck, of intensity 3/10. He [...] cluster headaches since. Heriberto works in Sales. NAHEED MCLEAN, BDS,MS [address], [place], [address], [facility] 04/08/2023 17:36:03 04/17/2023 text/html general HPI for jaw, face, TMD painReported bypatient.Location:righ t; [facility]; mandibular; temporal; has a tight neck on right side Quality:shooting; sharp; stabbing Severity:moderate; pain level 3-7/10; radiating to the head Durationconstant; not improving or worsening Symptom triggers:clenching; bruxism; stress; poor sleep Aggravating Factors:grinding teeth Alleviating Factors:acetaminophen; heat; ice; chiropractic Associated Symptoms:headaches Prior Tests:MRI Prior Treatment:NSAID trial Prior opinionprimary care provider Symptoms statusunchanged As part of today's telehealth visit Verbal [...] spread of Covid-19. The patient was at {{home* work }}, while the provider was {{home in the clinic* }}. The patient has been informed that there [...] follow-up. 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 Symptoms and pertinent information along with prior data was reviewed, updated and documented in the patient history of present illness. Patient rates the pain intensity as {{0* 1 2 3 4 5 6 7 8 9 10}} on a scale of 0 to 10. Patient is {{engaged in* not engaged in partially engaged in completed discontinu ed}} active treatment at this time. Heriberto got the Naproxen about a week ago, and he feels like the tightness is better, he can tell when the Naproxen wears off, he is trying his FLAQUITA again and he has been getting better sleep, he needs a new mask for his CPAP and we discussed going and buying one at [facility] vs waiting till june to [...] days but is able to recognise pain-free periods.CPAP - Heriberto reports that he has tried the CPAP and finds that the mask is not fitting right.MAD - he has used the MAD every night. He did 2 turns down-titration on both sides and did not notice any jaw symptoms.Sleep - improving, he wonders if his energy levels may be improved. He is waking up with less intense headaches.Headache journal - has been helpful - he does not identify triggers with weather changes, food triggers, no nausea, vomiting, light or sound sensitivity with the headaches. His [place] today is 9 rendered virtually. NAHEED MCLEAN BDS,MS [address] [facility] [address], [place], [address], [facility] 04/22/2023 07:52:27 05/08/2023 text/html As part of today 's telehealth visit Verbal Consent to treat was obtained from the patient. The patient has been informed of what a Telehealth visit is: Telehealth is the practice of using telecommunication technology to evaluate, diagnose and care for patients at a distance. This telehealth visit is medically necessary due to patient choice, distance or to prevent the community spread of Covid-19. The patient was at {{home* work }}, while the provider was {{home in the clinic* }}. The patient has been informed that there [...] follow-up. 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 Symptoms and pertinent information along with prior data was reviewed, updated and documented in the patient history of present illness. Patient rates the pain intensity as {{0* 1 2 3 4 5 6 7 8 9 10}} on a scale of 0 to 10. Patient is {{engaged in* not engaged in partially engaged in completed discontinu ed}} active treatment at this time. Heriberto reports [...] and will switch to Medicare after that. NAHEED MCLEAN, [place],MS [address] [facility] [address], [place], [address], [facility] 05/12/2023 23:33:48 2023 text/html Sleep ApneaRepor michael bypatient.Severity/stat us:severity of apnea: AHI=34; date of last ivffpepcgviuwaa21/31/20 15; lowest oxygen saturation 80-91% 80 Interference:morning tiredness/fatigue Associated Symptoms:morning headache Prior opinionpulmonology Prior Tests:polysomnography Patient presents today for follow-up. (S)he is {{effectively using* using struggling to use not using}} the mandibular advancement oral appliance. They note {{no changes in improved* worsening} } symptoms which along with prior data was reviewed, updated and documented in the patient history of present illness. Subjectively they believe the appliance to be {{very effective effective* pa rtially effective non-effective }} in improving sleep quality. (S)he recognizes {{improved* unchanged}} daytime tiredness and {{improvement* no improvement}} in restorative sleep. (S)he {{denies has mild* has significant}} side effects {{including jaw pain* including bite changes including aggravation of a preexisting TMD}}. {{(S)he is using the morning bite press clippings cutter and paster as recommended (S)he is not using the morning bite press clippings cutter and paster as recommended*}}. Adjustments to the oral appliance are {{believed to be necessary not felt necessary*}}. Heriberto's primary concern is temporal headaches. He [...] Heriberto reports experiencing headaches in the right taoism described as a dull achy pain 2x/week [...] looking forward to being able to relax. NAHEED MCLEAN BDS,MS [address] [facility] [address], [place], [address], [place] [facility] 2023 16:26:09 06/26/2023 text/html Sleep ApneaRepor michael bypatient.Severity/stat us:severity of apnea: AHI=34; date of last cazarrjmyennbwh63/31/20 15; lowest oxygen saturation 80-91% 80 Interference:morning tiredness/fatigue Associated Symptoms:morning headache Prior opinionpulmonology Prior Tests:polysomnography Patient presents today for follow-up. (S)he is {{effectively using* using struggling to use not using}} the mandibular advancement oral appliance. They note {{no changes in improved* worsening} } symptoms which along with prior data was reviewed, updated and documented in the patient history of present illness. Subjectively they believe the appliance to be {{very effective effective* pa rtially effective non-effective }} in improving sleep quality. (S)he recognizes {{improved* unchanged}} daytime tiredness and {{improvement* no improvement}} in restorative sleep. (S)he {{denies has mild* has significant}} side effects {{including jaw pain* including bite changes including aggravation of a preexisting TMD}}. {{(S)he is using the morning bite press clippings cutter and paster as recommended (S)he is not using the morning bite press clippings cutter and paster as recommended*}}. Adjustments to the oral appliance are {{believed to be necessary not felt necessary*}}.Heriberto is present for follow up after the [...] for rescue medications for the last 2 weeks.PT - started yesterday. improving with jaw /Neck tightness. Gave some exercises for isometric exercises. He is aware of tightness in neck muscles during the day and is working on addressing posture and relaxing his muscles. He reports that usp has helped with his stress and keeping [...] of the MAD and treating his apnea. NAHEED MCLEAN BDS,MS [address] [facility] [address] [facility] [address], [place], [address], [facility] 06/29/2023 08:59:58
[2024-07-10] MEDS: ACETAMINOPHEN 500 MG TABLET 1000 MG PO (07:58)
[2024-07-10] MEDS: CELECOXIB 200 MG CAPSULE PO (07:58)
[2024-07-10] MEDS: SODIUM CHLORIDE 0.9 % (FLUSH) 10 ML SYRINGE IVF (07:59)
[2024-07-10] MEDS: OXYCODONE (CR) 10 MG TAB.ER.12H PO (07:59)
[2024-07-10] MEDS: MIDAZOLAM HCL 1 MG/ML inj IVP (08:48)
[2024-07-10] MEDS: fentaNYL 100 MCG/2 ML inj IVP (08:48)
--- NOTE | 2024-07-10 09:04 | SUR.PREOP ---
TIME?OUT:?0848 PT/RN/MDA?VERIFICATION?OF?SURGICAL?SITE,?PROCEDURE,?AND?CONSENT OBTAINED?PRIOR?TO?INVASIVE?PROCEDURE.
[2024-07-10] MEDS: 0.9 % SODIUM CHLORIDE 500 ML 500 ML 100 ML IV (09:06)
--- NOTE | 2024-07-10 09:06 | W.PM.NB ---
Nerve Block Nerve Block Time Seen by Provider: 08:50 Date Seen: 07/10/24 Type of block requested by surgeon for post-operative analgesia: supraclavicular Side: right Time out performed: Yes Verification of patient name: Yes Verification of date of : Yes Site marking: site marked Name of person performing procedure: Rich Continuous monitoring Was continuous monitoring of O2 sat, B/P, electrical software engineer, recorded every 15 minutes?: Yes Procedure Checklist: sterile prep, needles and gloves Ultrasound guided. Images saved: Yes Medications given in 5ml increments after negative aspiration: Ropivicaine %: 0.5 mL: 17 Needle gauge: 22 Precedex (mcg): 25 Patient tolerated procedure well: Yes Block Charges Block Charge (with Pro Fee): Brachial Plexus Use of Ultrasound Machine for Block: Yes- US Guidance/pain block
[2024-07-10] MEDS: CEFAZOLIN 2 GM INJ IVP (09:55)
[2024-07-10] MEDS: EPINEPHrine 1 MG in SODIUM CHLORIDE IRRIG SOLUTION 3,000 ML 9003 MG IRRIGATION ×2 (10:15→11:05)
--- NOTE | 2024-07-10 11:12 | PM.ORPRC ---
Procedure Note Date of procedure: 07/10/24 Procedure: PREOPERATIVE DIAGNOSIS: Right shoulder rotator cuff tear, AC joint arthrosis POSTOPERATIVE DIAGNOSIS: Right shoulder rotator cuff tear, AC joint arthrosis NAME OF OPERATION: Right shoulder arthroscopic limited glenohumeral joint debridement, subacromial decompression, distal clavicle excision, mini open rotator cuff repair SURGEON: Sascha Olivas MD BARRELHEAD INSPECTOR: Shannon Vences PA-C ANESTHESIA: Supraclavicular block plus general endotracheal ESTIMATED BLOOD LOSS: 5 mL COMPLICATIONS: None SPECIMENS: None DRAINS: None PREOPERATIVE ANTIBIOTICS: Ancef 2 grams INDICATIONS: The patient is a 64-year-old with a history of right shoulder pain secondary to the above diagnoses. Despite appropriate non operative management, they continue to have symptoms. Operative intervention was recommended. The risks, benefits and expected outcomes were discussed in detail. These included but were not limited to: Infection, bleeding, injury to blood vessel or nerve, venous thromboembolism. All questions were answered to their satisfaction. PROCEDURE: A supraclavicular block was placed by Anesthesia. General anesthesia was administered. The patient was placed in the high beach chair position. The right shoulder was prepped and draped in the usual sterile fashion. The glenohumeral joint was infiltrated with 20 mL of normal saline with epinephrine. The posterior portal was established, the arthroscope was introduced. The anterior portal was established, Diagnostic arthroscopy was performed with findings as follows: The biceps and biceps anchor are intact. The anterior, posterior and superior labrum show age-appropriate degenerative tearing. Articular surfaces on the humeral head and glenoid are normal. There are no loose bodies. There is a full-thickness tear of the supraspinatus. The labrum was debrided with the shaver. The arthroscope was placed in the subacromial space, the lateral portal was established. The Arthrex [place] was used to dissect the acromion free. The CA ligament was recessed off the anterior acromion, the AC joint was exposed. The acromioplasty was performed with the bur in the posterior portal. The bur was then placed in the lateral portal and the lateral and anterior aspect of the acromion were resected. The undersurface of the distal clavicle was resected through the lateral portal. Finally, the bur was placed in the anterior portal and the remainder of the distal clavicle was resected for a total of 10 mm. An accessory anterolateral portal was placed. The subacromial/subdeltoid bursa was aggressively debrided. There is a full-thickness tear of the supraspinatus and infraspinatus. Arthroscopic instruments were removed. The accessory anterolateral portal was extended proximally and distally, subcutaneous dissection was taken with electrocautery to the deltoid. The deltoid was divided in line with its fibers. The static retractor was placed. The subacromial/subdeltoid bursa was debrided with the Cope scissors. There were a few remaining insertional fibers of the anterior aspect of the supraspinatus. These were released to the biceps. The biceps was retracted posteriorly and we inspected the subscap insertion which was pristine. The greater tuberosity was debrided to punctate bleeding bone using the arthroscopic bur. We placed several margin convergence #2 FiberWire sutures. Two Arthrex BioComposite SwiveLock anchors were placed just off the articular surface. Both limbs of the FiberWire and fiber tape were passed using the scorpion. A fiber link was placed in the leading edge of the rotator cuff x2. We tied the 2 central FiberWire sutures over the rotator cuff. We then proceeded with a lateral row of SwiveLock anchors x 2 crossing the FiberTape and incorporating the FiberWire and fiber link into each lateral row anchor. This provides a good repair of the rotator cuff. There is no tension on the repair with the shoulder at 0? abduction. The wound was irrigated with normal saline off the pump. The deltoid was repaired with an 0 Vicryl in an interrupted avaiew-fa-mgvsq fashion. Subcutaneous tissues were closed with a 3-0 Vicryl. Skin was closed with a 3-0 Monocryl in a subcuticular fashion. A dry dressing and sling were applied. Sponge and needle counts were correct x2. The patient tolerated the procedure well. There were no apparent complications. They were carefully transferred to the hospital bed and taken to the postanesthesia care unit in satisfactory condition. PLAN: The patient will be discharged to home. No active range of motion of the shoulder will be allowed for 6 weeks postoperatively. They can work on active range of motion of the elbow, wrist and fingers. They will follow up in the office next week for a wound check and an AP and transscapular Y-view of the shoulder prior to being seen.
--- NOTE | 2024-07-10 11:36 | W.ANESCHARGE ---
Anesthesia Charges Start Date/Time Anesthesia Start Date: 07/10/24 Anesthesia Start Time: 09:25 Stop Date/Time Anesthesia Stop Date: 07/10/24 Anesthesia Stop Time: 11:36
--- NOTE | 2024-07-10 12:27 | W.ANESCHARGE ---
Anesthesia Charges Start Date/Time Anesthesia Start Date: 07/10/24 Anesthesia Start Time: 09:25 Stop Date/Time Anesthesia Stop Date: 07/10/24 Anesthesia Stop Time: 11:36
== END 2024-07-10 15:30 | disposition home or self-care (01) ==
LOC: OR 07:13
PROVIDERS: PCP Family Medicine; Visit Provider Orthopaedic Surgery
PROC: (CPT 23412; principal; 2024-07-10 09:15)
DX: M75.101 Unspecified rotator cuff tear or rupture of right shoulder, not specified as traumatic (principal); M19.011 Primary osteoarthritis, right shoulder; G89.18 Other acute postprocedural pain
CPT/HCPCS: 29826; 29822; 29824; 23412; 01630; 64415; 76942; A9270; C1713; J0171; J0690; J1100; J2250; J2371; J2405; J2704; J2710; J2795; J3010; J7030; L3670